=== PATIENT | male | born 1975 | race Caucasian/White ===

== ENCOUNTER 2022-11-20 10:18 | Outpatient (OUT) | payer BC, SELFPAY ==
[2022-11-20 10:42] LABS: Basophils Absolute Auto 0.1 10^3/uL (0.0-0.1); Basophils Percent Auto 1.2 % (0.2-2.0); Eosinophils Absolute Auto 0.1 10^3/uL (0.0-0.7); Eosinophils Percent Auto 0.8 % (0.9-7.0); Hematocrit 43.1 % (42.0-54.0); Hemoglobin 14.7 g/dL (14.0-18.0); Immature Granulocytes Abs Auto 0.04 10^3/uL (0.00-0.03); Immature Granulocytes Pct Auto 0.7 % (0.0-0.5); Lymphocytes Absolute Auto 1.6 10^3/uL (1.2-3.8); Mean Corpuscular HGB Conc 34.1 g/dL (29.9-35.2); Mean Corpuscular Hemoglobin 31.7 pg (25.9-34.0); Mean Corpuscular Volume 93.1 fL (80.0-94.0); Mean Platelet Volume 9.1 fL (9.5-13.5); Monocytes Absolute Auto 0.6 10^3/uL (0.3-0.8); Monocytes Percent Auto 9.9 % (1.7-12.0); Neutrophils Absolute Auto 3.6 10^3/uL (1.4-6.5); Neutrophils Percent Auto 60.4 % (43.0-75.0); Platelet Count 288 10^3/uL (150-450); Red Blood Count 4.63 10^6/uL (4.70-6.10); Red Cell Distribution Width 13.2 % (11.0-15.0)
[2022-11-20 10:48] LABS: Estimated Average Glucose 100 mg/dL; Glycohemoglobin A1C 5.1 % (4.5-6.2)
[2022-11-20 11:00] LABS: Alanine Aminotransferase 44 U/L (16-63); Albumin Globulin Ratio 1.2; Alkaline Phosphatase 96 U/L (46-116); Anion Gap 14.7; Aspartate Amino Transferase 21 U/L (15-37); BUN Creatinine Ratio 12.2; Bilirubin Direct 0.1 mg/dL (0.0-0.2); Bilirubin Total 0.4 mg/dL (0.2-1.0); Calcium 9.4 mg/dL (8.5-10.1); Carbon Dioxide 28.4 mmol/L (21.0-32.0); Chloride 101 mmol/L (98-107); Cholesterol 198 mg/dL (<=200); Estimated GFR (African America >60 (>=60); Estimated GFR (Non-African Ame >60 (>=60); Globulin 3.3 g/dL; Glucose 90 mg/dL (74-106); HDL Cholesterol 67 mg/dL (40-60); Potassium 4.1 mmol/L (3.5-5.1); Sodium 140 mmol/L (136-145); Thyroid Stimulating Hormone 2.639 uIU/mL (0.358-3.740); Total Protein 7.3 g/dL (6.4-8.2); Triglycerides 48 mg/dL (<=150); VLDL CHOLESTEROL 9.6 mg/dL
[2022-11-26 16:08] LABS: Free Testosterone(Direct) 7.7 pg/mL (6.8-21.5); Testosterone 252 ng/dL (264-916)
== END 2022-11-20 10:19 | disposition home or self-care (01) ==
PROVIDERS: PCP Family Medicine; Visit Provider Family Medicine
DX: Z00.00 Encounter for general adult medical examination without abnormal findings (principal)
CPT/HCPCS: 36415; 80048; 80061; 80076; 83036; 84402; 84403; 84443; 85025; G0103

== ENCOUNTER 2023-01-27 14:42 | Outpatient (OUT) | payer BC, SELFPAY ==
[2023-01-29 05:05] LABS: Testosterone 149 ng/dL (264-916)
== END 2023-01-27 14:43 | disposition home or self-care (01) ==
PROVIDERS: PCP Family Medicine; Visit Provider Family Medicine
DX: E29.1 Testicular hypofunction (principal)
CPT/HCPCS: 36415; 84403

== ENCOUNTER 2024-01-14 21:18 | Emergency (ER) | payer BC, SELFPAY ==
[2024-01-14 21:24] VITALS: BP 145/96; PULSE 98; TEMP 37.2; O2SAT 95; BMI 39.3
[2024-01-14] MEDS: AMOXICILLIN/POTASSIUM CLAV 1 TAB TABLET PO (21:46)
--- NOTE | 2024-01-15 02:07 | ED.GENADUL1 ---
HPI HPI - General Adult General Chief complaint: Dental/Oral Stated complaint: Dental Pain Time Seen by Provider: 01/14/24 21:25 Source: patient Mode of arrival: walk-in Limitations: no limitations History of Present Illness HPI narrative: 48-year-old male to the emergency department chief complaint of upper left maxillary dental pain. Pain for the last few days. Unable to get into a dentist. Noticed some swelling in the maxillary region today prompting his ED visit. Denies any fever, sweats, chills. Related Data Home Medications ?Medication ?Instructions ?Recorded ?Confirmed bupropion HCl 150 mg 24 hr tablet, 300 mg PO DAILY 01/14/24 01/14/24 extended release buspirone 15 mg tablet 15 mg PO DAILY 01/14/24 01/14/24 levothyroxine 88 mcg tablet 88 mcg PO DAILY 01/14/24 01/14/24 lisinopril 20 1 tab PO DAILY 01/14/24 01/14/24 mg-hydrochlorothiazide 25 mg tablet Previous Rx's ?Medication ?Instructions ?Recorded amoxicillin 875 mg-potassium 1 tab PO Q12H #14 tabs 01/14/24 clavulanate 125 mg tablet Allergies Allergy/AdvReac Type Severity Reaction Status Date / Time No Known Drug Allergies Allergy Verified 01/14/24 21:23 Opioid HPI Opioid Management Most Recent Opioid Data: No Data to Display Review of Systems ROS Status of ROS 10 or more systems reviewed and unremarkable except as noted in history and below Exam Narrative Exam Narrative: VITALS: I have reviewed the triage vital signs. GENERAL: Well developed, well appearing adult in no acute distress. NEURO: Alert and oriented. Moves all extremities. Face is symmetric and expressive. EYES: PERRL. No scleral icterus or conjunctival injection. No discharge. HENT: Normocephalic, atraumatic. Hearing is grossly intact. Nares grossly patent and without discharge. Mucous membranes moist. Generally poor dentition. Gingival erythema about fractured tooth #12 NECK: No JVD. Patient moves neck without restriction. No crepitus or swelling EXTREMITIES: Symmetric muscle bulk. No joint swelling. No clubbing, cyanosis, or deformity. SKIN: Warm and dry. Normal turgor. No rash or lesions appreciated. PSYCH: Mood, affect, and interaction is appropriate to the setting. Constitutional Vital Signs, click to edit/add: Last Vital Signs Temp 99 F 01/14/24 21:24 Pulse 98 H 01/14/24 21:24 Resp 14 01/14/24 21:24 BP 145/96 H 01/14/24 21:24 Pulse Ox 95 01/14/24 21:24 O2 Del Method Room Air 01/14/24 21:24 Course Vital Signs Vital signs: Vital Signs Temperature 99 F 01/14/24 21:24 Pulse Rate 98 H 01/14/24 21:24 Respiratory Rate 14 01/14/24 21:24 Blood Pressure 145/96 H 01/14/24 21:24 Pulse Oximetry 95 01/14/24 21:24 Oxygen Delivery Method Room Air 01/14/24 21:24 Temperature 99 F 01/14/24 21:24 Pulse Rate 98 H 01/14/24 21:24 Respiratory Rate 14 01/14/24 21:24 Blood Pressure 145/96 H 01/14/24 21:24 Pulse Oximetry 95 01/14/24 21:24 Oxygen Delivery Method Room Air 01/14/24 21:24 Medical Decision Making MDM Narrative Medical decision making narrative: 40-year-old male with dental pain/infection. Vital stable, the patient is afebrile. No evidence of deep space infection. Tylenol and ibuprofen for discomfort. Will start him on Augmentin. He is instructed follow-up with dentistry within the next week. Return precautions were discussed. All questions were answered. The patient was discharged home. Discharge Plan Discharge Stand Alone Forms: Work/School Release, Portal Instructions Chief Complaint: Dental/Oral Clinical Impression: Dental abscess Patient Disposition: Home, Self-Care Time of Disposition Decision: 21:34 Condition: Good Mode of Transportation: Private Vehicle Prescriptions / Home Meds: New amoxicillin-pot clavulanate 875-125 mg tablet 1 tab PO Q12H Qty: 14 0RF No Action bupropion HCl 150 mg tablet extended release 24 hr 300 mg PO DAILY buspirone 15 mg tablet 15 mg PO DAILY levothyroxine 88 mcg tablet 88 mcg PO DAILY lisinopril-hydrochlorothiazide 20-25 mg tablet 1 tab PO DAILY Print Language: Lithuanian Instructions: Dental Abscess (ED) Additional Instructions: Call the office of your primary care doctor to arrange for follow-up within the above-stated timeframe. Your ED visit was focused on your acute issue and does not replace primary care. You should review your labs, imaging, and diagnoses from this ED visit with your primary care physician. There may be non-emergent/ incidental findings that need further evaluation. You should review your vital signs including blood pressure with your PCP. If you were prescribed medications you should discuss possible side-effects and drug interactions with your pharmacist. Call 911 or go to the nearest Emergency Department if you develop any new or worsening symptoms. Referrals: Sina Sterling MD [Primary Care Provider] - 1 week Discharge Date/Time: 01/14/24 21:50
== END 2024-01-14 21:50 | disposition home or self-care (01) ==
PROVIDERS: Emergency Provider Student in an Organized Health Care Education/Training Program; PCP Family Medicine
DX: K04.7 Periapical abscess without sinus (principal)
CPT/HCPCS: 99283

== ENCOUNTER 2025-02-10 21:58 | Emergency (ER) | payer BC, SELFPAY ==
[2025-02-10] VITALS (12 sets, daily range): BP systolic 127–154; BP diastolic 83–92; PULSE 80–99; O2SAT 94–97; BMI 40.7
--- OUTSIDE RECORDS SUMMARY | 2025-02-10 22:05 | XMS_ITS | CCD ---
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 Name Role Phone Jeremie, Chaya Unavailable Unavailable Jeremie, Chaya Unavailable Unavailable LYNETTE CROCKETT~[phone] UNKNOWN Unavailable Unavailable NADERER, DR LYNETTE Bailey Primary Care Unavailable CINDY ., Admitting Unavailable CINDY ., Attending Unavailable JALYN, DR MARVA Sanchez Consulting Unavailable Zieber, Dionte Consulting Unavailable GRECHNY ., BELLA MCGINNIS Consulting Unavailabl e CINDY ., Consulting Unavailable ALFREDO, MOUNA Attending Unavailable ALFREDO, MOUNA Attending Unavailable ALFREDO, MOUNA Attending Unavailable ALFREDO, MOUNA Attending Unavailable ALFREDO, MOUNA Admitting Unavailable ALFREDO, MOUNA Attending Unavailable ALFREDO, MOUNA Referring Unavailable ALFREDO, MOUNA Referring Unavailable ALFREDO, MOUNA Referring Unavailable ALFREDO, MOUNA Referring Unavailable ALFREDO, MOUNA Referring Unavailable NADERER, LYNETTE Attending Unavailable Problems Active Problems Problem Classification Problem Date Documented Da te Episodic/Chronic Crushing injury or internal injury (1 source) Crushing injury of right little finger, initial encounter; Translations: [CRUSHING INJURY RT LTL FINGER INIT] Onset: 09-09-2022 Episodic E Codes: Other specified and classifiable (1 source) Caught, crushed, jammed, or pinched between moving objects, initial encounter; Translations: [CAUGHT CRUSH/PINCH BTWN MOV OBJ INT] Onset: 09-09-2022 Episodic Fracture of upper limb (2 sources) Displaced fracture of distal phalanx of left little finger, initial encounter for open fracture; Translations: [Displaced fracture of distal phalanx of left little finger, initial encounter for open fracture] Onset: 03-03-2023 Episodic Immunizations and screening for infectious disease (1 source) Encounter for immunization; Translations: [ENCOUNTER FOR IMMUNIZATION] Onset: 09-09-2022 Episodic Open wounds of extremities (1 source) Laceration without foreign body of right index finger without damage to nail, initial encounter; Translations: [LAC W/O FB RT IF W/O DMG NAIL INIT] Onset: 09-09-2022 Episodic Other injuries and conditions due to external causes (3 sources) Unspecified injury of right wrist, hand and finger(s), initial encounter; Translations: [UNS INJ RT WRIST HAND FINGERS INIT] Onset: 09-07-2022 Episodic Past or Other Problems Problem Classification Problem Date Documented Da te Episodic/Chronic Fracture of upper limb (3 sources) Displaced fracture of distal phalanx of right little finger, initial encounter for closed fracture; Translations: [Displaced fracture of distal phalanx of unspecified finger, initial encounter for open fracture] Onset: 09-09-2022 Episodic Other acquired deformities (2 sources) Mallet finger of right finger(s); Translations: [Mallet finger of right finger(s)] Onset: 10-20-2022 Episodic Other connective tissue disease (2 sources) Pain in right hand; Translations: [Pain in right hand] Onset: 09-09-2022 Episodic Residual codes; unclassified (2 sources) Pain, unspecified; Translations: [Pain, unspecified] Onset: 09-13-2022 Episodic Results Test Name Value Interpretation Reference Range Facility Follow-Upon 12-02-2022 Follow-Up [id number] Wendy Musa 1975 M Date Provider Department Center 12/02/2022 BRYAN EVANS Family History Family history unknown: Yes Level of Service:74714 NM POSTOP FOLLOW UP VISIT RELATED TO ORIGINAL PX Reason for Visit and Comments: Follow-up [020788] - [facility] Injury Pain [136] - [facility] Injury Normal [facility] Office Visiton 10-20-2022 Follow-up visit [id number] Wendy Musa 1975 M Date Provider Department Center 10/20/2022 BRYAN EVANS Family History Family history unknown: Yes Level of Service:93787 NM POSTOP FOLLOW UP VISIT RELATED TO ORIGINAL PX Reason for Visit and Comments: Pain [136] Normal [facility] Office Visiton 09-24-2022 Follow-up visit [id number] Wendy Musa 1975 M Date Provider Department Center 09/24/2022 Cornelio-BRYAN FUENTES [facility]O [facility]THO Family History Family history unknown: Yes Level of Service:70888 NM POSTOP FOLLOW UP VISIT RELATED TO ORIGINAL PX Reason for Visit and Comments: Post-op [483] [facility] HPon 09-13-2022 HP H&P reviewed. The patient was examined and there are no changes to the H&P. [facility] OPNOTEon 09-13-2022 OPNOTE CLOSED REDUCTION , PERCUTANEOUS PINNING, FRACTURE, SMALL FINGER (R) Operative Note Date: 09/13/2022 Location: [facility] OR Name: Yuval Musa, : 1975, Diagnosis Pre-op Diagnosis * Displaced fracture of distal phalanx of unspecified finger, initial encounter for open fracture [S62.419B] Post-op Diagnosis * Displaced fracture of distal phalanx of unspecified finger, initial encounter for open fracture [S62.639B] Procedures * CLOSED REDUCTION , PERCUTANEOUS PINNING, FRACTURE, SMALL FINGER Surgeons * Mouna Chanceapha - Primary Procedure Summary Anesthesia: Regional ASA: II Estimated Blood Loss: 1 mL Implants Type Name Action Serial No. Pin K-WIRE,#1,[id number] - [id number] Implanted Pin K-WIRE,#1,[id number] - [id number] Used, Not Implanted Staff: Roofer: Danni Evans RN Scrub Person: Kellee Rosenberg CST Indications: Yuval Musa is an 46 y.o. male who is having surgery for Displaced fracture of distal phalanx of unspecified finger, initial encounter for open fracture [S62.048B]. Procedure Details: The patient was seen in the preoperative area. The risks, benefits, complications, treatment options, non-operative alternatives, expected recovery and outcomes were discussed with the patient. The possibilities of reaction to medication, pulmonary aspiration, injury to surrounding structures, bleeding, recurrent infection, the need for additional procedures, failure to diagnose a condition, and creating a complication requiring transfusion or operation were discussed with the patient. The patient concurred with the proposed plan, giving informed consent. The site of surgery was properly noted/marked if necessary per policy. The patient has been actively warmed in preoperative area. Preoperative antibiotics have been ordered and given within 1 hours of incision. Venous thrombosis prophylaxis are not indicated. Findings: Noted was that the right small finger was still swollen. The wound to the volar surface was healing well with no signs of infection. Radiographs have been taken which did demonstrate an reaffirm complete volar subluxation of the DIP joint and now the dorsal fragment appeared to be retracted proximally as well. In the preoperative holding area under conscious sedation a digital block to the right small finger was established using 7 cc of a mixture of 0.5% Marcaine/1% Xylocaine. Patient was then transferred to the operating room whereby the right upper extremity was prepped and draped for the proposed procedure. Radiographs were repeated which did demonstrate proximal and dorsal translation of the dorsal fragment of the P3. With flexion of the DIP joint this fragment was reduced and was elected to proceed with a blocking pin to prevent dorsal proximal translation. 8.045 inch Laura wire was then established in an oblique fashion serving as a blocking pin. The distal phalanx was then extended and under x-ray guidance reduction of the fragment and concentric reduction of the joint report demonstrated. The joint was then stabilized with 3.045 Laura wire advanced in an anterograde fashion. Final radiographs demonstrated excellent reduction of the fracture fragment and reduction of the joint. Pins were bent and cut at the level of the skin. Sterile dressings were applied. Complications: None; patient tolerated the procedure well. Disposition: PACU - hemodynamically stable. Condition: stable Mouna Alfredo Normal [facility] POCT GLUCOSE METER UNSOLICIT ED RESULTSon 09-13-2022 Glucose [Mass/Vol] 97 mg/dL Normal 70-105 [facility] Comment on above: Result Comment: binw low Performed By: #### L [id number] #### [facility] [address] [place] [address] HPon 09-09-2022 HP --- Attestation signed by Mouna Fuentes MD at 09/13/2022 12:20 PM I personally saw and examined the patient on the same date of service as resident/fellow . I discussed the findings and therapeutic plan with the resident/fellow . I agree with the documentation, except for any edits/updates below. Teaching Physician's Revisions: Orthopedic Surgery Subjective Chief complaint: Chief Complaint Patient presents with Right Hand - Pain 09/09/22 Yuval Musa is a 46 y.o. year old male presenting for evaluation of right hand small finger crush injury with subsequent open fracture dislocation at work two days ago. He went to [facility] where they treated his finger. He was given a tetanus shot and has been on antibiotics. He denies fever, chills, nausea, vomiting, headache, chest pain. Patient History History reviewed. No pertinent surgical history. Past Medical History: Diagnosis Date Diverticulitis Hypertension Hypothyroid Objective General: Body mass index is 39.33 kg/m???. No acute distress, comfortable Respiratory: Unlabored breathing with normal rate, no cough Psych: Appropriate mood behavior Right hand: Inspection- Laceration repaired with sutures along the volar ulnar aspect of his small finger spanning the PIP and DIP. Tendons- FDP and FDS in intact of the small finger. Sensation- SILT along the radial and ulnar aspect of the volar small finger and the volar tip of the finger. Vascular- Appropriate cap refill of the small finger. Imaging: Radiographs of right hand demonstrate small finger distal phalanx base fracture with intra-articular involvement. The small finger distal phalanx is subluxed anteriorly. Assessment/Plan Yuval Musa is a 46 y.o. year old male who suffered a right hand small finger open distal phalanx base fracture with intra-articular involvement initially treated at [facility] and sent to our clinic for further care. Given his injury, the patient will benefit from surgical repair with closed reduction and percutaneous pinning of his fracture. -Submit C9 for diagnosis of right hand small finger open distal phalanx base fracture with intra-articular involvement -Submit C9 for surgical repair with closed reduction and percutaneous pinning of his right hand small finger distal phalanx fracture. -Patient was explained risks and benefits of surgery and surgical consent obtained today. -Patient should continue to practice daily dressing changes and wear the splint that he has. -Continue with antibiotics. - Patient will be off work for 2 weeks. Matthew Gill MD PGY-3 Orthopedic Surgery [facility] By using the attestations below, the signing clinician agrees that I have read and verify that the documentation has been personally reviewed by me and ensure that the documentation accurately reflects the encounter. GC: I personally saw this patient on the day of the encounter, performed the winslow portion(s) of the service and participated in the management and confirm the resident's documentation. Please note there may be an additional personal documentation from me. [facility] Office Visiton 09-09-2022 Follow-up visit [id number] Wendy Musa 1975 M Date Provider Department Center 09/09/2022 [facility] Family history unknown: Yes Level of Service:44900 NM OFFICE/OUTPATIENT NEW LOW [facility] 30-44 MINUTES Reason for Visit and Comments: Pain [136] [facility] Coding Summary.on 01-31-2018 Coding Summary. CODING DATE: 018 FINAL [facility] STATUS: [facility] PAYOR: Commercial Insurance APC DESCRIPTION 5025 Level 5 Type A ED Visits ADMIT DX: REASON FOR VISIT DX: R45.851 Suicidal ideations F32.9 Major depressive disorder, single episode, unspecified FINAL DX: PRINCIPAL: F32.9 Major depressive disorder, single episode, unspecified SECONDARY: R45.851 Suicidal ideations I10 Essential (primary) hypertension Z79.899 Other intermediate frame tender (current) drug therapy F17.210 Nicotine dependence, cigarettes, uncomplicated PYMT PROC APC STAT DESCRIPTION DOCTOR NAME DATE NOTE: The code number assigned matches the documented diagnosis and / or procedure in the patient's chart. However, the narrative phrase printed from the coding software may appear abbreviated, or result in slightly different terminology. Revised Coded By: Elizabeth Marcelo Revised Date Saved: 01/31/2018 09:52 am Normal [facility] Acetamnphn Lvlon 01-30-2018 Acetaminophen mass conc <10 Low 15-30 F [facility] Comment on above: Performed By: #### 2 [id number], [id number] ####[facility] [address] [place] [address] Auto Diffon 01-30-2018 Basophils Auto #/vol (Bld) 0.7 % Normal 0.0-2.0 [facility] Comment on above: Order Comment: Order Added by Discern Expert. Performed By: #### 2 551580, 7969693, 1755400, [id number] ####[facility] [address] [place] [address] Basophils/Leukocytes Auto Pure number fraction (Bld) 0.1 E9/L Normal 0.0-0.2 [facility] Comment on above: Order Comment: Order Added by Discern Expert. Performed By: #### 2 793659, 5782275, 2518019, [id number] ####[facility] [address] [place] [address] Eosinophils/100 WBC Auto (Bld) 0.6 % Normal 0.0-8.0 [facility] Comment on above: Order Comment: Order Added by Discern Expert. Performed By: #### 2 142336, 9800010, 8225046, 53827041 ####[facility] [address] [place] [address] Eosinophils/Leukocytes Auto Pure number fraction (Bld) 0.1 E9/L Normal 0.0-0.5 [facility] Comment on above: Order Comment: Order Added by Discern Expert. Performed By: #### 2 344514, 1575470, 6838064, 09856158 ####[facility] [address] [place] [address] Lymphocytes/100 WBC Auto (Bld) 30.2 % Normal 14.0-50.0 [facility] Comment on above: Order Comment: Order Added by Tamia Expert. Performed By: #### 2 230429, 1945069, 0705903, 98947831 ####[address] [address] Lymphocytes/Leukocytes Auto Pure number fraction (Bld) 3.0 E9/L Normal 1.0-4.0 [facility] Comment on above: Order Comment: Order Added by Discern Expert. Performed By: #### 2 535683, 5793381, 3295320, 50189966 ####[address] [address] Monocytes/100 WBC Auto (Bld) 5.7 % Normal 4.0-14.0 [facility] Comment on above: Order Comment: Order Added by Tamia Expert. Performed By: #### 2 371987, 1724948, 6945185, 05274543 ####[address] [address] Monocytes/Leukocytes Auto Pure number fraction (Bld) 0.6 E9/L Normal 0.2-1.0 [facility] Comment on above: Order Comment: Order Added by Tamia Expert. Performed By: #### 2 108327, 6985681, 4953455, 82890747 ####[address] [address] Neutrophils/100 WBC Auto (Bld) 62.8 % Normal 36.0-75.0 [facility] Comment on above: Order Comment: Order Added by Tamia Expert. Performed By: #### 2 432583, 6789728, 2448190, 55260204 ####[address] [address] Neutrophils/Leukocytes Auto Pure number fraction (Bld) 6.3 E9/L Normal 2.0-7.5 [facility] Comment on above: Order Comment: Order Added by Tamia Expert. Performed By: #### 2 589791, 5274373, 9432378, 83590877 ####[place] 9209357 CBC w/ Auto Diffon 8 Erythrocyte distribution width Auto Ratio (RBC) 13.6 % Normal 10.9-14.2 [facility] Comment on above: Performed By: #### 2 944544, 1154398, 3409259, 32248379 ####[place] 9405357 Hematocrit Auto Volume Fraction (Bld) 48.7 % Normal 37.7-49.0 [facility] Comment on above: Performed By: #### 2 785088, 6670007, 9849236, 03373549 ####[place] 9405357 Hemoglobin mass conc (Bld) 16.7 g/dL Normal 13.5-17.5 [facility] Comment on above: Performed By: #### 2 669077, 1344835, 4835114, 89295433 ####[place] 9405357 MCH Auto Entitic mass (RBC) 30.6 pg Normal 27.0-34.0 [facility] Comment on above: Performed By: #### 2 085668, 1213863, 4404740, 68449162 ####[address] [address] MCHC Auto mass conc (RBC) 34.3 g/dL Normal 31.4-39.3 [facility] Comment on above: Performed By: #### 2 943035, 9139670, 6447584, 36852970 ####[address] [address] MCV Auto Entitic volume (RBC) 89.3 fL Normal 80.0-100.0 [facility] Comment on above: Performed By: #### 2 085564, 6195261, 8212885, 44643465 ####[address] [address] Platelet mean volume Auto Entitic volume (Bld) 7.6 fL Normal 6.4-10.8 [facility] Comment on above: Performed By: #### 2 926348, 3153831, 1482653, 78739400 ####[address] [address] Platelets Auto #/vol (Bld) 361.0 E9/L Normal 150.0-500.0 [facility] Comment on above: Performed By: #### 2 458589, 8234003, 5579438, 44098042 ####[facility] [address] [place] [address] RBC Auto #/vol (Bld) 5.4 E12/L Normal 4.3-5.9 [facility] Comment on above: Performed By: #### 2 545410, 1165852, 3370676, 01640272 ####[address] [address] WBC corrected for nucl RBC Auto #/vol (Bld) 10.1 E9/L Normal 4.0-11.0 [facility] Comment on above: Performed By: #### 2 414969, 3609620, 4669902, 83358002 ####[address] [address] CMPon 01-30-2018 Albumin mass conc 1.3 g/dL Normal 1.1-2.2 [facility] Comment on above: Performed By: #### 2 594715, 7802419, 4817506, 37926142 ####[place] [address] [place] [address] Albumin mass conc 4.5 g/dL Normal 3.3-5.0 [facility] Comment on above: Performed By: #### 2 661926, 6442672, 5382767, 10287542 ####[facility] [address] [place] [address] ALP enzyme act/vol 91 Int._Unit/L Normal 21-98 [facility] Comment on above: Performed By: #### 2 445004, 0433382, 8548247, 19500815 ####[facility] [address] [place] [address] ALT No additional P-5'-P enzyme act/vol 33 Int._Unit/L Normal 6-46 [facility] Comment on above: Performed By: #### 2 800220, 9729877, 6508560, 79595979 ####[facility] [address] [place] [address] AST enzyme act/vol 26 Int._Unit/L Normal 5-43 [facility] Comment on above: Performed By: #### 2 550055, 4941293, 6214867, 46973372 ####[facility] [address] [place] [address] Bilirubin mass conc 0.5 mg/dL Normal 0.0-1.1 [facility] Comment on above: Performed By: #### 2 259333, 6101841, 6844502, 48029360 ####[facility] [address] [place] [address] Creatinine mass conc 0.9 mg/dL Normal 0.5-1.3 [facility] Comment on above: Performed By: #### 2 947082, 3263769, 2319358, 11636649 ####[facility] [address] [facility] [place] [address] Globulin Calculated mass conc (S) 3.4 g/dL Normal 1.4-4.0 [facility] Comment on above: Performed By: #### 2 609015, 7064801, 6118251, 55516964 ####[facility] [address] [place] [address] Protein mass conc 7.9 g/dL High 6.0-7.8 [facility] Comment on above: Performed By: #### 2 515637, 1257110, 8289917, 74866204 ####[facility] [address] [place] [address] Urea nitrogen mass conc 11 mg/dL Normal 5-21 F [facility] Comment on above: Performed By: #### 2 812416, 8125986, 6211745, 59380665 ####[facility] [address] [place] [address] Urea nitrogen/Creatinine mass ratio 12 No Units Normal 10-20 [facility] Comment on above: Performed By: #### 2 469227, 4509597, 1119073, 75940125 ####[facility] [address] [place] [address] Anion gap 3 molar conc 17 mmol/L High 6-16 Fi [facility] Comment on above: Performed By: #### 2 324978, 5902410, 0884897, 11160502 ####[facility] [address] [place] [address] Calcium mass conc 9.3 mg/dL Normal 8.9-11.1 [facility] Comment on above: Performed By: #### 2 703356, 4943385, 2293762, 19430746 ####[facility] [address] [facility] [place] [address] Chloride molar conc 99 mmol/L Low 101-111 [facility] Comment on above: Performed By: #### 2 950093, 9996737, 6712080, 95586161 ####[facility] [address] [place] [address] CO2 molar conc 22 mmol/L Normal 21-31 [facility] Comment on above: Performed By: #### 2 641509, 5028385, 0201896, 90725090 ####[facility] [address] [place] [address] Glucose mass conc 128 mg/dL Normal 55-199 [facility] Comment on above: Result Comment: If t his glucose result represents a fasting glucose, interpretation should refer to the following reference range: 55-99 mg/dL Performed By: #### 2 712159, 8370389, 2488899, 48970173 ####[facility] [address] [place] [address] Potassium molar conc 3.6 mmol/L Normal 3.5-5.3 [facility] Comment on above: Performed By: #### 2 836711, 4993012, 6566110, 51151222 ####[facility] [address] [place] [address] Sodium molar conc 134 mmol/L Low 135-145 [facility] Comment on above: Performed By: #### 2 931613, 0480805, 4458565, 28178724 ####[facility] [address] [place] [address] ED Clinical Summaryon 2017 ED Clinical Summary (Inserted Image. Shantell ble to display) [address] [address] ED Clinical SummaryPerson Information Name: YUVAL MUSA/Davie Age: 42 Years : 1975 12:00 AM Sex: Male Language:Somali PCP: LYNETTE CROCKETT MD Marital Status:Unknown Visit Id: Visit Reason:Suicidal ideation; Screening - general; mhp Speciality: Acuity: 2 Enc Type: Emergency Med Service: Emergency Arrival:01/30/2018 12:29 AM Discharge: 01/30/2018 9:30 AM LOS: 000 09:01 Checkin:01/30/2018 12:29 AM Checkout: 01/30/2018 9:30 AM Dis[facility]: [facility] EVENTS:Event Name Event Status Request Date/Time Start Date/Time Complete Date/Time Arrive Complete 01/30/2018 12:29 AM 01/30/2018 12:29 AM 01/30/2018 12:29 AM Document Home Meds Request 01/30/2018 12:29 AM Triage Complete 01/30/2018 12:29 AM 01/30/2018 12:38 AM 01/30/2018 12:38 AM Bed Assign Complete 01/30/2018 12:36 AM 01/30/2018 12:36 AM 01/30/2018 12:[address] Exam Complete 01/30/2018 12:36 AM 01/30/2018 12:49 AM 01/30/2018 12:49 AM RN Exam Complete 01/30/2018 12:36 AM 01/30/2018 1:07 AM 01/30/2018 1:07 AM Pending Labs Complete 01/30/2018 12:37 AM 01/30/2018 1:22 AM Lab Complete 01/30/2018 12:37 AM 01/30/2018 1:22 AM Urine Collect Complete 01/30/2018 12:37 AM 01/30/2018 1:12 AM Patient Care Request 01/30/2018 12:37 AM Registration Complete 01/30/2018 12:38 AM 01/30/2018 12:38 AM 01/30/2018 12:38 AM Reg Complete Request 01/30/2018 12:38 AM Registration Request 01/30/2018 12:49 AM Pending Labs Complete 01/30/2018 12:54 AM 01/30/2018 12:54 AM 01/30/2018 1:11 AM Lab Complete 01/30/2018 12:54 AM 01/30/2018 12:54 AM 01/30/2018 1:11 AM Pending Labs Request 01/30/2018 12:55 AM Lab Request 01/30/2018 12:55 AM Urine Collect Request 01/30/2018 12:55 AM Pending Labs Complete 01/30/2018 12:57 AM 01/30/2018 12:57 AM 01/30/2018 12:57 AM Lab Complete 01/30/2018 12:57 AM 01/30/2018 12:57 AM 01/30/2018 12:57 AM Consult Request 01/30/2018 12:59 AM Pending Labs Complete 01/30/2018 1:22 AM 01/30/2018 1:41 AM Lab Complete 01/30/2018 1:22 AM 01/30/2018 1:41 AM Meds Admin Complete 01/30/2018 2:48 AM 01/30/2018 4:09 AM Pending Labs Complete 01/30/2018 3:08 AM 01/30/2018 3:08 AM 01/30/2018 3:08 AM Discharge Complete 01/30/2018 9:31 AM 01/30/2018 9:31 AM 01/30/2018 9:31 AM Transfer Complete 01/30/2018 9:31 AM 01/30/2018 9:31 AM 01/30/2018 9:31 AM ADDRESS:[address] [place] [address] [phone] [facility] DOC NOTES: MEDICAL INFORMATION: Prescriptions Given:PATIENT EDUCATION INFORMATION: Instructions: Follow up:DIAGNOSIS:1:Suicidal ideations; 2:Depressed mood Normal [facility] ED Note-Nursingon 01-30-2018 ED Note-Nursing report recieved from Chasity Mehta RN, pt resting at this time with eyes closed within view of nurses station, respirations even and unlabored no signs of distress [id number] continues to rest in room within view of nurses station , respirations even and unlabored, no signs of [id number]- pt continues to rest in room within view of nurses station, 0554- condition unchanged, resting with eyes closed, no s/sx of [id number] resting in bed respirations even and unlabored, no signs of [id number]- pt continues to rest with eyes closed, respirations even and unlabored, pt remains in view of nurses station,[id number]- pt continues to rest with eyes closed, no signs of distressbreakfast tray ordered for [id number]- pt continues to rest left undisturbed, no signs of distress Normal [facility] ED Note-Nursing Pt is resting quietl y in bed. Denies suicidal ideations but has been sending text messages to family members stating otherwise. Messages that were sent state that he will be taking his last breath tonight and hes sorry for not being a better son and brother . Pt is calm and cooperative. [employer] did escort pt in to facility but he is not in custody. Since pt is cooperative they([employer]) have since left. RN will continue to monitor.In room to speak with pt and he is aware that he will be transferred to another facility. Pt is very upset. Is verbalizing that he hates us and we are ruining his life. Pt has now changed out of personal clothing and is in a gown. Has not raised his voice or been aggressive but continually states he cannot be here and that he has to leave.Pt has asked for girlfriend to come back but when she is in room he is being verbally aggressive and cursing. Pt making comments about suing the hospital for holding him against his will. I attempted to inform pt that unfortunately because of comments that were made we are keeping as to not allow harm to self. Pt is up in room standing in corner..P counselor in room to let pt know where he will be going and he is stating he is more suicidal now since we are making him stay and that again we are ruining his life. Pt is very upset.Medications were ordered for pt to help relax and calm down. Pt agreed to meds prior to RN getting them. When in room to administer pt states that if you give me those meds I am going to [place] you . Verbalized to pt that he had agreed to allow us to give. Pt has changed his mind. No medications administered at this time per pt declines. Gave him home contact case and solution.Pt is resting quietly in bed with eyes closed, no signs of distress noted. RN can visualize pt. ETA of depart time is 830am. Normal [facility] ED Note-Physicianon 01-31-20 ED Note-Physician Basic Information Ti me Seen: Jeremie DOChaya 01/30/2018 00:49Chief Complaint Pt arrives in [employer] custody after 'arguement with gf' sts he 'said something about harming himself this evening.' Pt presently denies homicidal/SI tendencies. Denies depression, anxiety. Drank 5 beers, denies drug use.History of Present Illness 42M presents to the ER with general issues and concern for depression and suicidal ideations/threats. Discussion with the girlfriend, the patient has had increased depression over the past few months. He is having multiple stressors at home. He has issues with his ex-. He also has concerns with his 3 children that he has with ex-. He is starting a new job tomorrow. He has made multiple suicidal threats in the past. He did tell his current girlfriend couple months ago that he was at home with a shotgun in his mouth ready to go. She states they do have a shotgun at home. Tonight he had issues with his son at the football game. His girlfriend and him went to the concert afterwards. After the concert, patient was crying and stating that he hated everything. At this time he proceeded to contact his family members to tell them he loved them and to say goodbye. He also told that tonight was the night of his last breath. Girlfriend is very concerned as his depression and suicidal threats have worsened over the past couple of months. Tonight, they got into an argument and he stated he was going to jump off the bridge. She does not feel safe with him going home. Patient denies suicidal thoughts. He states he just had an argument with his girlfriend and his ex . He states he was just making the statement to get her mad and get their attention. In the patient's pocket was a note written to his eldest son, essentially leaving everything to him and asking him to take care of his brothers.Review of Systems Unless otherwise stated in this report the patient's positive and negative responses for review of systems for constitutional, eyes, ENT, cardiovascular, respiratory, gastrointestinal, neurological, genitourinary, musculoskeletal, and integument systems and related systems to the presenting problem are either as stated in the HPI or were not pertinent or were negative for the symptoms and/or complaints related to the presenting medical problem. Physical Exam Vitals & Measurements HR: 120(Peripheral) RR: 20 BP: 135/90 SpO2: 96% HT: 180 cm WT: 138.5 kg BMI: 42.75 General: Alert, no acute distress Skin: warm, intact, no pallor noted Head: Normocephalic, atraumatic Eye: Normal conjunctiva Cardiac: Normal peripheral perfusion. Respiratory: No acute distress. Gastrointestinal: Soft, nontender, no distention, bowel sounds present. Musculoskeletal: No deformity, full ROM. No edema Neurological: alert and oriented, normal sensory and motor observed. Psychiatric: CooperativeMedical Decision Making I was able to read the text messages the patient sent to his sister as well as his aunt. He was very clear in his messages that his intent tonight was to commit suicide. At this time we will medically clear the patient to have him evaluated by a mental health professional. Patient will be pink slipped. medically cleared for psych eval. evaluated by [facility] patient becoming more aggressive with violent outbursts towards staff - 1mg ativan and 2mg Haldol ordered. Patient has been accepted at [address], accepting physician Dr Perez. Transport to be set up around 8-830am. We will continue to monitor the patient until that time. His home anti-hypertensive medication of lisinopril was given to him Pt refused ativan and haldol at this time. He is more calm and agreeable to the plan.Assessment/Plan 1. Suicidal ideations 2. Depressed mood Orders: haloperidol, 2 mg = 0.4 mL, Injection, IntraMuscular, Once, Stop date 01/30/18 3:00:00 EDT, Routine, Start date 01/30/18 3:00:00 EDT lorazepam, 1 mg = 0.5 mL, Injection, IV Push, Once, Stop date 01/30/18 3:00:00 EDT, Routine, Start date 01/30/18 3:00:00 EDT Acetaminophen Level Automated Diff CBC w/ Auto Diff Communication Order Comprehensive Metabolic Panel Consult to Mental Health Drug Screen Urine eGFR Ethanol Level Salicylate Level UA With Cult ReflexDisposition Plan Patient Discharge Condition stable Discharge Disposition TRANSFER FOR INPATIENT PSYCH TO [address], ACCEPTING PHYSICIAN DR PEREZ. Discharge Prescription List Prescriptions No active prescription medications Follow-up No qualifying data availableProblem List/Past Medical History Ongoing Smoker Historical No qualifying dataMedications Inpatient Ativan 2 mg/mL Injection, 1 mg= 0.5 mL, IV Push, Once haloperidol 5 mg/mL Inj, 2 mg= 0.4 mL, IntraMuscular, Once Home No active home medicationsAllergies No Known AllergiesLab Results WBC: 10.1 E9/L (01/30/18 00:50:00 EDT) RBC: 5.4 E12/L (01/30/18 00:50:00 EDT) Hgb: 16.7 gm/dL (01/30/18 00:50:00 EDT) Hct: 48.7 % (01/30/18 00:50:00 EDT) MCV: 89.3 fL (01/30/18 00:50:00 EDT) MCH: 30.6 pg (01/30/18 00:50:00 EDT) MCHC: 34.3 gm/dL (01/30/18 00:50:00 EDT) RDW: 13.6 % (01/30/18 00:50:00 EDT) Platelet: 361 E9/L (01/30/18 00:50:00 EDT) MPV: 7.6 fL (01/30/18 00:50:00 EDT) Neutro Auto: 62.8 % (01/30/18 00:50:00 EDT) Lymph Auto: 30.2 % (01/30/18 00:50:00 EDT) [place] Auto: 5.7 % (01/30/18 00:50:00 EDT) Eos Auto: 0.6 % (01/30/18 00:50:00 EDT) Basophil Auto: 0.7 % (01/30/18 00:50:00 EDT) Neutro Absolute: 6.3 E9/L (01/30/18 00:50:00 EDT) Lymph Absolute: 3 E9/L (01/30/18 00:50:00 EDT) [place] Absolute: 0.6 E9/L (01/30/18 00:50:00 EDT) Eos Absolute: 0.1 E9/L (01/30/18 00:50:00 EDT) Basophil Absolute: 0.1 E9/L (01/30/18 00:50:00 EDT) Glucose Lvl: 128 mg/dL (01/30/18 00:50:00 EDT) BUN: 11 mg/dL (01/30/18 00:50:00 EDT) Creatinine: 0.9 mg/dL (01/30/18 00:50:00 EDT) eGFR: >60 (01/30/18 00:50:00 EDT) eGFR AA: >60 (01/30/18 00:50:00 EDT) BUN/Creat Ratio: 12 (01/30/18 00:50:00 EDT) Sodium Lvl: 134 mmol/L Low (01/30/18 00:50:00 EDT) Potassium Lvl: 3.6 mmol/L (01/30/18 00:50:00 EDT) Chloride: 99 mmol/L Low (01/30/18 00:50:00 EDT) CO2: 22 mmol/L (01/30/18 00:50:00 EDT) AGAP: 17 mEq/L High (01/30/18 00:50:00 EDT) Calcium Lvl: 9.3 mg/dL (01/30/18 00:50:00 EDT) Alk Phos: 91 Int._Unit/L (01/30/18 00:50:00 EDT) ALT: 33 Int._Unit/L (01/30/18 00:50:00 EDT) AST: 26 Int._Unit/L (01/30/18 00:50:00 EDT) Total Protein: 7.9 gm/dL High (01/30/18 00:50:00 EDT) Albumin Lvl: 4.5 gm/dL (01/30/18 00:50:00 EDT) Globulin: 3.4 gm/dL (01/30/18 00:50:00 EDT) A/G Ratio: 1.3 (01/30/18 00:50:00 EDT) Bili Total: 0.5 mg/dL (01/30/18 00:50:00 EDT) Acetaminoph Lvl: <10 Low (01/30/18 00:50:00 EDT) Salicylate Lvl: <4 Low (01/30/18 00:50:00 EDT) U Amph Scr: Negative (01/30/18 00:47:00 EDT) U Nel Scr: Negative (01/30/18 00:47:00 EDT) U Benzodia Scr: Negative (01/30/18 00:47:00 EDT) U Cannab Scr: Negative (01/30/18 00:47:00 EDT) U Cocaine Scr: Negative (01/30/18 00:47:00 EDT) U Opiate Scr: NEG1 (01/30/18 00:47:00 EDT) U PCP Scr: Negative (01/30/18 00:47:00 EDT) Ethanol Lvl: 154 mg/dL Critical (01/30/18 00:50:00 EDT)Diagnostic Results No qualifying data available. Normal [facility] Comment on above: Result Comment: Elec tronically Signed By: Chaya Chao DO\.br\Date and Time Signed: 01/30/18 03:37 EDT ED Patient Education Noteon 01-30-2018 ED Patient Education Note Normal [facility] ED Patient Summaryon 018 ED Patient Summary (Inserted Image. Shantell ble to display) [address] [address] Patient Discharge Instructions Person Information Name: YUVAL MUSA Age: 42 Years Date: 01/30/2018 12:29 AMDischarge Diagnosis: 1:Suicidal ideations; 2:Depressed mood Primary Care Physician: LYNETTE CROCKETT MD Provider InformationPrimary Provider: Wilver Chao DOdvbev Assistant Front Office Manager:None The exam and treatment you received in the Emergency Department were for an urgent problem and are not intended as complete care. It is important that you follow up with a doctor, nurse practitioner, or physician?s clinical data assistant for ongoing care. If your symptoms become worse or you do not improve as expected and you are unable to reach your usual health care provider, you should return to the Emergency Department. We are available 24 hours a day. YUVAL MUSA has been given the following list of patient education materials, prescriptions and follow-up instructions: Follow-up Instructions: In the event that this physician does not participate in your insurance network, please consult with your insurance company to find a nearby participating provider. Patient Education Materials: A MESSAGE TO ALL PATIENTS REGARDING OPIOIDS PRESCRIPTION OPIOIDS: WHAT YOU NEED TO KNOW Prescription opioids can be used to help relieve lbkthpcp-nf-gdrgwz pain and are often prescribed following a surgery or injury, or for certain health conditions. These medications can be an important part of the treatment but also come with serious risks. It is important to work with your healthcare provider to make sure you are getting the safest, most effective care. WHAT ARE THE RISKS AND SIDE EFFECTS OF OPIOID USE?Prescription opioids carry serious risks of addiction and overdose, especially with prolonged use. An opioid overdose, often marked by slowed breathing, can cause sudden . The use of prescription opioids can have a number of side effects as well, even when taken as directed:? Tolerance?meaning you might need to take more of the medication for the same pain relief? Physical dependence?meaning you have symptoms of withdrawal when a medication is stopped? Increased sensitivity to pain ? Constipation? Nausea, vomiting, and dry mouth? Sleepiness and dizziness? Confusion? Depression? Low levels of testosterone that can result in lower sex drive, energy, and strength? Itching and sweating RISKS ARE GREATER WITH:? History of drug misuse, substance use disorder, or overdose? Mental health conditions (such as depression or anxiety)? Sleep apnea? Older age (65 years and older)? Avoid alcohol while taking prescription opioids. Also, unless specifically advised by your health care provider, medications to avoid include:? Benzodiazepines (such as Xanax or Valium)? Muscle relaxants (such as Soma or Flexeril)? Hypnotics (such as Ambien or Lunesta)? Other prescription opioids KNOW YOUR OPTIONSTalk to your health care provider about ways to manage your pain that don?t involve prescription opioids. Some of these options may actually work better and have fewer risks and side effects. Options may include:? Pain relievers such as acetaminophen, ibuprofen, and naproxen? Some medication that are also used for depression or seizures? Physical therapy and exercise? Cognitive behavioral therapy, a psychological, goal-directed approach, in which patients learn how to modify physical, behavioral, and emotional triggers of pain and stress. IF YOU ARE PRESCRIBED OPIOIDS FOR PAIN:? Never take opioids in greater amounts or more often than prescribed.? Follow up with your primary health care provider.o Work together to create a plan on how to manage your pain.o Talk about ways to help manage your pain that don?t involve prescription opioids.o Talk about any and all concerns and side effects.? Help prevent misuse and abuseo Never sell or share prescription opioids.o Never use another person?s prescription opioids.? Store prescription opioids in a secure place and out of reach of others (this may include visitors, children, friends, and family).? Safely dispose of unused prescription opioids: Find your community drug take-back program or your pharmacy mail-back program, or flush them down the toilet, following guidance from the Food and Drug Administration (www.fda.gov/Drugs/Reso urcesForYou).? Visit www.cdc.gov/drugoverdos e to learn about the risks of opioids abuse and overdose.? If you believe you may be struggling with addiction, tell your health healthcare market consultant and ask for guidance or call [facility] National Helpline at 5-215-544-IGGQ. v Source: US Department of Health and Human Services/Center for Disease Control & Prevention [facility] Medications Given:Medication Dose Route No medications found. Medication Information:Comment: Pharmacy Information: Thank you for choosing [facility] P atient Education Materials: GUANACO Mari BRIAN S , have received the following patient education materials/instructions and have verbalized understanding: Patient Education Materials: Follow-up Instructions: Prescriptions: Patient Signature Clinician/Nurse Signature _ Date 01/30/18 09:31:29 Normal [facility] Ethanolon 01-30-2018 Ethanol mass conc 154 mg/dL Abnormal <=7 [facility] Comment on above: Result Comment: Crit ical Result S_ETOH:154.0 Called to ROBERTO CANALES AT by SONDRA MEEK And Read Back For Confirmation at: 01/30/2018 01:22:23\Critical Result verified by repeat analysis Performed By: #### 2 [id number] ####[facility] [address] [place] [address] Progress Note-Nurseon 2017 Protein mass conc Patient remains cooperative. Denies any needs or complaints at this time. Lien Searcher updated girlfriend Ignacia Bahena with current plan of care after patient consent. Normal [facility] Protein mass conc Patient consumed 75% of meal. Up ambulated to bathroom with slow steady gait. Patient denies any further needs. Cooperative at this time. Normal [facility] Protein mass conc Care of patient take n over per conventional underwriter. Meal tray given. Patient denies complaints or needs. Cooperative at this time. Normal [facility] Salicylateon 01-30-2018 Salicylates mass conc mg/dL Low 6-29 [facility] Comment on above: Performed By: #### 2 [id number] ####[facility] [address] [facility] [place] [address] U Drug Screenon 01-30-2018 Amphetamines Screen method >1000 ng/mL Ql (U) Negative Normal Negative [facility] Comment on above: Result Comment: Nega tive Cutoff: <1000 ng/mL Performed By: #### 2 [id number] ####[facility] [address] [place] [address] Barbiturates Screen Ql (U) Negative Normal Negative [facility] Comment on above: Result Comment: Nega tive Cutoff: <200 ng/mL Performed By: #### 2 [id number] ####[facility] [address] [place] [address] Benzodiazepines Screen Ql (U) Negative Normal Negative [facility] Comment on above: Result Comment: Nega tive Cutoff: <200 ng/mL Performed By: #### 2 [id number] ####[facility] [address] [place] [address] Cocaine Ql (U) Negative Normal Negative [facility] Comment on above: Result Comment: Nega tive Cutoff: <300 ng/mL Performed By: #### 2 [id number] ####[facility] [address] [place] [address] Opiates Screen Ql (U) Negative Normal Negative [facility] Comment on above: Result Comment: Nega tive Cutoff: <300 ng/mL Performed By: #### 2 [id number] ####[facility] [address] [place] [address] Phencyclidine Screen method >25 ng/mL Ql (U) Negative Normal Negative [facility] Comment on above: Result Comment: Nega tive Cutoff: <25 ng/mLThese drug screen results are to be used for medical (i.e., treatment) purposes only. Unconfirmed drug screening results must not be used for non-medical purposes (e.g., employment testing, legal testing). Performed By: #### 2 [id number] ####[facility] [address] [place] [address] Tetrahydrocannabinol Screen method >50 ng/mL Ql (U) Negative Normal Negative [facility] Comment on above: Result Comment: Nega tive Cutoff: <50 ng/mL Performed By: #### 2 [id number] ####[facility] [address] [place] [address] eGFRon 01-30-2018 GFR/1.73 sq M predicted among blacks MDRD vol rate/area (S/P/Bld) mL/min/{1.73_m2} Normal >=59 [facility] Comment on above: Order Comment: Order added by Discern Expert. Result Comment: eGFR is race adjusted. AA=. Performed By: #### 2 [id number], [id number] ####[facility] [address] [place] [address] GFR/1.73 sq M predicted among non-blacks MDRD vol rate/area (S/P/Bld) mL/min/{1.73_m2} Normal >=59 [facility] Comment on above: Order Comment: Order added by Discern Expert. Result Comment: Liner Man henrry kidney disease could be indicated at eGFR's of less than 60 mL/min/1.73m2. Kidney failure is indicated at less than 15 mL/min/1.73m2. Performed By: #### 2 [id number], [id number] ####[facility] [address] [place] [address] Encounters Encounter Date Encounter Type Care Provider Facility Start: 04-26-2023 End: 04-26-2023 ambulatory LYNETTE CROCKETT Not Available Start: 03-03-2023 End: 03-04-2023 ambulatory [facility] Start: 12-02-2022 End: 12-03-2022 ambulatory [facility] Start: 10-20-2022 End: 10-21-2022 ambulatory [facility] Start: 09-24-2022 End: 09-24-2022 ambulatory [facility] Start: 09-13-2022 End: 09-13-2022 ambulatory [facility] Start: 09-13-2022 End: 09-13-2022 Encounter for preprocedural laboratory examination [facility] Start: 09-13-2022 End: 09-13-2022 ambulatory [facility] Start: 09-09-2022 End: 09-10-2022 ambulatory [facility] Start: 09-07-2022 End: 09-07-[address] LYNETTE CRCOKETT Facility: Start: 01-30-2018 End: 01-30-2018 Emergency department patient visit Chaya Jeremie Facility:[facility] Payers Date Payer Category Payer Unknown [id number] 2022 Unknown [id number] 2022 Unknown [id number] 2021 Unknown [id number] 2018 Private Health Insurance [id number] 1975 Unknown [id number] 1975 Unknown [id number] 1959 Private Health Insurance [id number] 1959 Unknown [id number] Progress note 12-02-2022 Note Date & Type Note Facility 12-02-2022 Note Attestation signed by Mouna Fuentes MD at 12/06/2022 2:49 PM As the teaching physician, I have personally performed or re-performed the history of present illness, physical exam and medical decision making activities of the encounter and verified the medical student's documentation. I made pertinent changes as necessary to ensure accurate documentation. Orthopedic Surgery Subjective Follow-up and Pain of the Right Hand ([facility] Injury) 12/02/22 Yuval Musa is a 47 y.o. ambidextrous male presenting 12 weeks s/p closed reduction and percutaneous pinning of right small finger bony mallet finger on 09/13/2022. Patient had pins removed on 10/20/2022. He presents today for follow-up evaluation. He denies any pain but his concerned with the swelling in his finger. He denies any fevers/chills. Patient states he is unable to fully flex or fully extend distal phalanx. Patient's current work restriction is 10lbs. Review of Systems unremarkable aside from what is noted in HPI Swelling Patient History Past Surgical History: Procedure Laterality Date CLOSED REDUCTION HAND FRACTURE Right 09/13/2022 with percutaneous pinning, small finger COLONOSCOPY Past Medical History: Diagnosis Date Diverticulitis Hypertension Hypothyroid Objective General: Body mass index is 40.42 kg/m???. No acute distress, comfortable Respiratory: Unlabored breathing with normal rate, no cough Cardiovascular: Warm well perfused extremities Psych: Appropriate mood behavior MSK: Examination of the right hand revealed well healed pin sites. There is residual swelling of right small finger without erythema or warmth. Nontender to palpation or with active and passive ROM. Extensor lag at DIP is noted at 50 degrees. Flexion of DIP is 45 degrees. Small finger is able to touch hypothenar eminence of flexion. Imaging personally reviewed: Assessment/Plan Yuval Musa is a 47 y.o. male 12 weeks s/p closed reduction and percutaneous pinning of right small finger for bony mallet finger. Patient had pins removed on 10/20/2022. Residual swelling of right small finger is present. - discussed with patient swelling is not of infectious nature and will likely slowly decrease over time. -patient can return to work with no restrictions. -follow-up in 3 months with X-rays to evaluate for any signs of post-traumatic arthritis. Matthew Angel, MS-3 Medical Student 12/02/22 10:13 AM [facility] Progress note 10-20-2022 Note Date & Type Note Facility 10-20-2022 Note Orthopedic Surgery Subjective Pain of the Right Little Finger Yuval Musa is a 47 y.o. year old ambidextrous male presenting 5 weeks following closed reduction and percutaneous pinning of a bony mallet finger date of 09/13/2022. Presently patient has had restrictions of no use of the right hand. Patient reports no significant pain. Patient History Past Surgical History: Procedure Laterality Date CLOSED REDUCTION HAND FRACTURE Right 09/13/2022 with percutaneous pinning, small finger COLONOSCOPY Past Medical History: Diagnosis Date Diverticulitis Hypertension Hypothyroid Objective General: Body mass index is 40.42 kg/m???. No acute distress, comfortable Respiratory: Unlabored breathing with normal rate, no cough Cardiovascular: Warm well perfused extremities Psych: Appropriate mood behavior MSK: Examination of the right hand revealed that the pin sites were clean and intact. Is nontender to palpation. His motion was slightly diminished as expected. Flexion of the MP joint was measured to be 90 degrees, PIP 50 degrees. With attempted flexion he was able, then 3.5 cm of the distal palmar flexion crease. Radiographs of the finger have been obtained and reviewed noted was that there is definite signs of healing of the fracture with no residual subluxation. Assessment/Plan Yuval Musa is a 47 y.o. year old male with status post treatment of a closed bony mallet injury. The pins were removed uneventfully. Patient was provided with an aluminum foam splint for protection. He was allowed to work with a 5 pound restriction of the right hand for period of 4 weeks. He will be reassessed again at that time with repeat radiographs of the right small finger. A C9 will be submitted for 4-week course of occupational therapy 3 times per week to address motion and strengthening of the upper extremity. [facility] Progress note 09-24-2022 Note Date & Type Note Facility 09-24-2022 Note -------- Attestation signed by Mouna Fuentes MD at 10/05/2022 10:09 AM I personally saw and examined the patient on the same date of service as resident/fellow . I discussed the findings and therapeutic plan with the resident/fellow . I agree with the documentation, except for any edits/updates below. Teaching Physician's Revisions: -------- Orthopedic Surgery 09/13/2022 Closed Reduction , Percutaneous Pinning, Fracture, Small Finger - Right Yuval Musa comes in for a post-operative visit after having a right closed reduction and percutaneous pinning of a bony mallet finger on his right small finger done on 09/13/2022. Today he is doing well and has no unexpected complaints. Pain is under control and he denies any new numbness/tingling/weakness. Physical Exam: The incision site is healing well. There is no erythema, drainage or signs of infection. Tenderness is mild and localized to the surgical site. Sensation is present present to light touch. Range of motion is appropriate for this time. Assessment: Yuval Musa is a 46 y.o. year old male Plan: 46-year-old male who is status post right small finger closed reduction percutaneous pinning of a bony mallet injury. DOS: 09/13/2022 -We will continue work restrictions of no use of right hand for any pushing/pulling/lifting for 4 more weeks. -Return to clinic in 4 weeks time for reevaluation. We will repeat x-rays at that visit. We will plan on removing pins at that time which will be a total course of [address] weeks with pins in [address] -We will submit C9 for 4 weeks of postoperative OT to begin after next visit -Patient may begin showering at this time -He will continue use of the aluminum foam splint while at work and in situations where the finger should have some extra protection Jason Diaz MD Orthopedic Surgery, PGY-3 [facility] Pager: [phone] 09/24/22 8:24 AM [facility] Clinical Note 09-13-2022 Note Date & Type Note Facility 09-13-2022 Note Patient: Yuval Pedro at Procedure Summary Date: 09/13/22 Room / Location: [address] [place] Anesthesia Start: 1339 Anesthesia Stop: 1418 Procedure: CLOSED REDUCTION , PERCUTANEOUS PINNING, FRACTURE, SMALL FINGER (Right: Little Finger) Diagnosis: Displaced fracture of distal phalanx of unspecified finger, initial encounter for open fracture (Displaced fracture of distal phalanx of unspecified finger, initial encounter for open fracture [S62.639B]) Surgeons: Mouna Fuentes MD Responsible Provider: Emmanuel Hu MD Anesthesia Type: MAC ASA Status: 2 Anesthesia Type: MAC Vitals Value Taken Time BP 150/87 09/13/22 1428 Temp 36.2 ???C (97.2 ???F) 09/13/22 1413 Pulse 80 09/13/22 1428 Resp 16 09/13/22 1428 SpO2 94 % 09/13/22 1428 Anesthesia Post Evaluation Patient location during evaluation: PACU Patient participation: complete - patient participated Level of consciousness: awake Pain score: 1 Pain management: adequate Airway patency: patent Cardiovascular status: acceptable Respiratory status: acceptable Patient is hemodynamically stable and is able to be discharged from PACU per anesthesia protocol. No notable events documented. [facility] Clinical Note 09-13-2022 Note Date & Type Note Facility 09-13-2022 Note Patient: Yuval Pedro at Procedure Information Date/Time: 09/13/22 1400 Procedure: PINNING, FRACTURE, PERCUTANEOUS SMALL FINGER (Right: Little Finger) - C-arm Location: [facility] OR [address] [place] [address] OR Surgeons: Mouna Fuentes MD Relevant Problems Anesthesia (within normal limits) Cardio > 4 METS denies chest pain/SOB Endo BMI 40 /Renal (within normal limits) Neuro/Psych (within normal limits) Pulmonary (within normal limits) Clinical information reviewed: Tobacco Allergies Meds Med Hx Surg Hx Fam Hx Soc Hx Physical Exam Airway Mallampati: II TM distance: >3 FB Neck ROM: full Cardiovascular - normal exam Dental Pulmonary - normal exam Abdominal Anesthesia Plan ASA 2 MAC The patient is not a current smoker. Patient was not previously instructed to abstain from smoking on day of procedure. Patient did not smoke on day of procedure. intravenous induction Anesthetic plan and risks discussed with patient. Plan discussed with CAA. Additional Equipment Requests [facility] Progress note 09-09-2022 Note Date & Type Note Facility 09-09-2022 Note -------- Attestation signed by Mouna Fuentes MD at 09/13/2022 12:20 PM I personally saw and examined the patient on the same date of service as resident/fellow . I discussed the findings and therapeutic plan with the resident/fellow . I agree with the documentation, except for any edits/updates below. Teaching Physician's Revisions: -------- Orthopedic Surgery Subjective Chief complaint: Chief Complaint Patient presents with Right Hand - Pain 09/09/22 Yuval Musa is a 46 y.o. year old male presenting for evaluation of right hand small finger crush injury with subsequent open fracture dislocation at work two days ago. He went to [facility] where they treated his finger. He was given a tetanus shot and has been on antibiotics. He denies fever, chills, nausea, vomiting, headache, chest pain. Patient History History reviewed. No pertinent surgical history. Past Medical History: Diagnosis Date Diverticulitis Hypertension Hypothyroid Objective General: Body mass index is 39.33 kg/m???. No acute distress, comfortable Respiratory: Unlabored breathing with normal rate, no cough Psych: Appropriate mood behavior Right hand: Inspection- Laceration repaired with sutures along the volar ulnar aspect of his small finger spanning the PIP and DIP. Tendons- FDP and FDS in intact of the small finger. Sensation- SILT along the radial and ulnar aspect of the volar small finger and the volar tip of the finger. Vascular- Appropriate cap refill of the small finger. Imaging: Radiographs of right hand demonstrate small finger distal phalanx base fracture with intra-articular involvement. The small finger distal phalanx is subluxed anteriorly. Assessment/Plan Yuval Musa is a 46 y.o. year old male who suffered a right hand small finger open distal phalanx base fracture with intra-articular involvement initially treated at [facility] and sent to our clinic for further care. Given his injury, the patient will benefit from surgical repair with closed reduction and percutaneous pinning of his fracture. -Submit C9 for diagnosis of right hand small finger open distal phalanx base fracture with intra-articular involvement -Submit C9 for surgical repair with closed reduction and percutaneous pinning of his right hand small finger distal phalanx fracture. -Patient was explained risks and benefits of surgery and surgical consent obtained today. -Patient should continue to practice daily dressing changes and wear the splint that he has. -Continue with antibiotics. - Patient will be off work for 2 weeks. Matthew Gill MD PGY-3 Orthopedic Surgery [facility] By using the attestations below, the signing clinician agrees that I have read and verify that the documentation has been personally reviewed by me and ensure that the documentation accurately reflects the encounter. GC: I personally saw this patient on the day of the encounter, performed the winslow portion(s) of the service and participated in the management and confirm the resident's documentation. Please note there may be an additional personal documentation from me. [facility] Clinical Note 09-07-2022 Note Date & Type Note Facility 09-07-2022 Note PROCEDURE: XR FINGER MIN 2 VIEWS HISTORY: Crushing injury of hand ; post reduction and splinting; acute right fifth finger pain COMPARISON: XR hand right 09/07/2022 FINDINGS: BONES:Anterior subluxation of the distal phalanx of the fifth digit with separate large posterior corner fragment. Distal fragments along the lateral margin of the tuft. SOFT TISSUES:Soft tissue swelling fifth digit. EFFUSION:None visible. OTHER: Negative. IMPRESSION: 1. Reduction/partial reduction of the fifth digit distal phalanx. Anterior subluxation will likely persistent due to fracture/avulsion of the posterior corner of the distal phalanx. Electronically authenticated by: DIONTE GONZALEZ Date: 2022-09-07 15:01 [facility] Clinical Note 09-07-2022 Note Date & Type Note Facility 09-07-2022 Note PROCEDURE: XR HAND R T MIN 3V COMPARISON: None. HISTORY: Crushing injury of hand FINDINGS: BONES:3.5 mm dorsal plate avulsion fracture base of the fifth distal phalanx with volar subluxation of the fifth distal phalanx in relation to the middle phalanx. Additional calcification along the tuft of the fifth distal phalanx could represent a separate fracture SOFT TISSUES:Soft tissue swelling and subcutaneous air EFFUSION:None visible. OTHER: Negative. IMPRESSION: Fracture dislocation fifth distal phalanx Electronically authenticated by: MARVA GUNDERSON Date: 2022-09-07 13:09 [facility] Summary Purpose Family History No Family History Records FoundNo Family History Records FoundNo Family History Records FoundNo Family History Records Found Advance Directives No Advanced Directives Records FoundNo Advanced Directives Records FoundNo Advanced Directives Records FoundNo Advanced Directives Records Found Additional Source Comments (unrecognized sect ion and content) No Status Records FoundNo Status Records FoundNo Status Records FoundNo Status Records Found INFORMATION SOURCE (unrecogn ized section and content) DATE CREATED AUTHOR 02/16/2018 [facility] DATE CREATED AUTHOR AUTHOR'S ORGANIZ ATION 09/09/2022 [facility] DATE CREATED AUTHOR AUTHOR'S ORGANIZ ATION 03/04/2023 [facility] DATE CREATED AUTHOR AUTHOR'S ORGANIZ ATION 04/28/2023 [facility] FOR RECORDS PERTAINING TO PATIENTS WHO ARE OR HAVE BEEN ENROLLED IN A CHEMICAL DEPENDENCY/SUBSTANCEABUSE PROGRAM, SOME INFORMATION MAY BE OMITTED. This clinical summary was aggregated from multiple sources. Caution should be exercised in using it in the provision of clinical care. This summary normalizes information from multiple sources, and as a consequence, information in this document may materially change the coding, format and clinical context of patient data. In addition, data may be omitted in some cases. CLINICAL DECISIONS SHOULD BE BASED ON THE PRIMARY CLINICAL RECORDS. [facility] [employer]. provides no warranty or guarantee of the accuracy or completeness of information in this document.
--- NOTE | 2025-02-10 22:18 | XR_ITS ---
[place] [address] Patient Name: YUVAL BLANC MRN: [id number] date: 1975 Sex: M Assigned Patient Location: ED.MAIN Current Patient Location: Accession/Order Number: [id number] Exam Date: 02/10/2025 22:26 Report Date: 02/11/2025 07:49 At the request of: JESSI CARRION Procedure: XR chest 1V XR chest 1V 02/10/2025 10:32 PM SIGNS AND SYMPTOMS: ^dizziness ^Y PROTOCOL: Frontal radiograph of the chest COMPARISON: 05/28/2020 FINDINGS: The trachea is midline. The heart and mediastinal structures are within normal limits. The lung parenchyma is clear. The bony thorax is intact. XR/XR chest 1V IMPRESSION: No acute cardiopulmonary pathology. Impression dictated by: Mark Wilson M.D. 02/11/2025 7:49 AM Dictation Location: [place] [address] Electronically authenticated by: [id number] Y Date: 02/11/2025 07:49
--- NOTE | 2025-02-10 22:18 | ECG_ITS ---
[facility] Test Date: 2025-02-10 Pat Name: YUVAL BLANC Department: Room: - Gender: Male [employer]: : 1975 Requested By: Yao Zhang Order Number: [id number] Reading MD: SHOBHA WOODWARD M.D. Measurements Intervals Occidental Rate: 80 P: 55 OR: 160 QRS: 35 QRSD: 100 T: 44 QT: 376 QTc: 412 Interpretive Statements 1100 Sinus rhythm 9110 normal ECG No previous ECG available for comparison Electronically Signed On 02-11-2025 7:09:26 EDT by SHOBHA WOODWARD M.D.
[2025-02-10] MEDS: 0.9 % SODIUM CHLORIDE 1,000 ML 999 ML IV (22:34)
--- NOTE | 2025-02-10 22:56 | ED.DIZZY1 ---
HPI - Dizziness General Chief Complaint: Dizziness Stated Complaint: Dizziness Time Seen by Provider: 02/10/25 22:08 Source: patient Mode of arrival: walk-in Limitations: no limitations History of Present Illness HPI Narrative: cc -dizziness Patient suddenly developed dizziness while at work. He apparently got hot, sweaty. No chest pain, palpitations, shortness of breath. No syncope. He denied any recent injury or illness. No prior history of this happening. He denied prior history of cardiac disease. Prior medical history includes hypertension and hypothyroidism. BP was up a little when I got it checked by my sister. 156/94, he told me He is now feeling back to normal. Related Data Home Medications ?Medication ?Instructions ?Recorded ?Confirmed bupropion HCl 150 mg 24 hr tablet, 300 mg PO DAILY 01/14/24 02/10/25 extended release levothyroxine 88 mcg tablet 88 mcg PO DAILY 01/14/24 02/10/25 lisinopril 20 1 tab PO DAILY 01/14/24 02/10/25 mg-hydrochlorothiazide 25 mg tablet Previous Rx's ?Medication ?Instructions ?Recorded amoxicillin 875 mg-potassium 1 tab PO Q12H #14 tabs 01/14/24 clavulanate 125 mg tablet Allergies Allergy/AdvReac Type Severity Reaction Status Date / Time No Known Drug Allergies Allergy Verified 02/10/25 22:23 PFSH PFSH Social History Little interest or pleasure in doing things: not at all Feeling down, depressed, or hopeless: not at all Exam Narrative Exam Narrative: Nurses notes and vital signs reviewed and patient is not hypoxic. afebrile General: Well-appearing and in no apparent distress. Skin: Warm, dry, no pallor noted. No rash. Eye: Pupils are equal, round and EOMI. No scleral icterus. Ears, Nose, Mouth, and Throat: TM are clear, no posterior oropharynx erythema or nasal mucosal hypertrophy, uvula is mid-line Oral mucosa is moist Cardiovascular: Regular Rate and Rhythm without murmur, gallop or rub. Respiratory: No accessory muscle use or respiratory distress. Lungs are clear to auscultation, no wheezing, rales or rhonchi Musculoskeletal: normal ROM, no calf or popliteal tenderness, no lower extremity edema/swelling GI: Abdomen is soft, non-distended. Normal bowel sounds. No tenderness to palpation. No rebound, guarding, or rigidity noted. Neurological: A&O x4. No cranial nerve dysfunction observed. No truncal ataxia. Moves all extremities. Sensation intact. Psychiatric: Cooperative and interactive. Normal mood and affect. Constitutional Vital Signs, click to edit/add: Last Vital Signs Pulse 86 02/10/25 23:54 Resp 23 H 02/10/25 22:22 BP 136/83 02/10/25 23:54 Pulse Ox 96 02/10/25 23:26 O2 Del Method Room Air 02/10/25 22:15 Course Vital Signs Vital signs: Vital Signs Pulse Rate 82 02/10/25 22:15 Respiratory Rate 16 02/10/25 22:15 Blood Pressure 154/92 H 02/10/25 22:15 Pulse Oximetry 97 02/10/25 22:15 Oxygen Delivery Method Room Air 02/10/25 22:15 Pulse Rate 86 02/10/25 23:54 Respiratory Rate 23 H 02/10/25 22:22 Blood Pressure 136/83 02/10/25 23:54 Pulse Oximetry 96 02/10/25 23:26 Oxygen Delivery Method Room Air 02/10/25 22:15 MDM - Dizziness MDM Narrative Medical decision making narrative: Patient was placed on delphi developer and EKG obtained. Blood drawn and sent for evaluation. Orthostatic vital signs obtained. Patient was ordered to receive a liter of normal saline IV fluid. Portable chest x-ray was also obtained. Vyikg-ir-[id number] glucose equal 93. Orthostatics were negative. Blood test were unremarkable including negative thyroid service, negative troponin and normal magnesium. He was informed of results and we talked about potential causes of his symptoms. He is stable for discharge home and will follow-up with his primary care provider, Dr. Sterling, or return to the ED if he develops any new or worsening symptoms.. Differential Diagnosis Differential diagnosis: Likely benign paroxysmal positional vertigo, orthostatic hypotension, vertebral basilar insufficiency, cerebrovascular accident, acute vestibular neuronitis and transient cerebral ischemia Medical Records Attestation: I reviewed the patient's medical records. Lab Data Attestation: I reviewed the patient's lab results. Labs: Lab Results 02/10/25 02/10/25 Range/Units 22:25 22:39 WBC 8.5 (4.0-11.0) 10^3/uL RBC 4.77 (4.70-6.10) 10^6/uL Hgb 15.3 (14.0-18.0) g/dL Hct 45.2 (42.0-54.0) % MCV 94.8 H (80.0-94.0) fL MCH 32.1 (25.9-34.0) pg MCHC 33.8 (29.9-35.2) g/dL RDW 12.6 (11.0-15.0) % Plt Count 270 (150-450) 10^3/uL MPV 9.8 (9.5-13.5) fL Neut % (Auto) 57.9 (43.0-75.0) % Lymph % (Auto) 28.7 (20.5-60.0) % [place] % (Auto) 11.0 (1.7-12.0) % Eos % (Auto) 1.2 (0.9-7.0) % Baso % (Auto) 0.8 (0.2-2.0) % Neut # (Auto) 4.9 (1.4-6.5) 10^3/uL Lymph # (Auto) 2.4 (1.2-3.8) 10^3/uL [place] # (Auto) 0.9 H (0.3-0.8) 10^3/uL Eos # (Auto) 0.1 (0.0-0.7) 10^3/uL Baso # (Auto) 0.1 (0.0-0.1) 10^3/uL Abs Immat Gran (auto) 0.03 (0.00-0.03) 10^3/uL Imm/Tot Granulo (auto) 0.4 (0.0-0.5) % Sodium 138 (136-145) mmol/L Potassium 3.7 (3.5-5.1) mmol/L Chloride 103 (98-107) mmol/L Carbon Dioxide 25.0 (21.0-32.0) mmol/L Anion Gap 13.7 BUN 17.0 (7.0-18.0) mg/dL Creatinine 1.09 (0.70-1.30) mg/dL Est GFR ( Amer) >60 (>=60 mL/min/1.73m^2) Est GFR (Non-Af Amer) >60 (>=60 mL/min/1.73m^2) BUN/Creatinine Ratio 15.6 Glucose 99 (74-106) mg/dL Calcium 8.9 (8.5-10.1) mg/dL Magnesium 2.2 (1.8-2.4) mg/dL Troponin I High Sens <4.0 L (4.0-76.1) pg/mL Free T4 1.06 (0.76-1.46) ng/dL Free T3 3.01 (2.18-3.98) pg/mL POC Glucose 93 (74-106) mg/dL Imaging Data Chest x-ray: Attestation: I personally reviewed and interpreted this imaging study as follows: My impression: No acute cardiopulmonary disease. No cardiomegaly. No pneumothorax, effusion or consolidation. ECG Data Attestation: I personally reviewed and interpreted this ECG as follows: Interpretation: EKG interpretation: Emergency Department physician interpretation. Normal sinus rhythm at 80bpm. Normal axis, normal intervals and no ST segment elevation or depression. Normal EKG. Discharge Plan Discharge Chief Complaint: Dizziness Clinical Impression: Dizziness Patient Disposition: Home, Self-Care Time of Disposition Decision: 00:05 Prescriptions / Home Meds: No Action bupropion HCl 150 mg tablet extended release 24 hr 300 mg PO DAILY levothyroxine 88 mcg tablet 88 mcg PO DAILY lisinopril-hydrochlorothiazide 20-25 mg tablet 1 tab PO DAILY amoxicillin-pot clavulanate 875-125 mg tablet 1 tab PO Q12H Qty: 14 0RF Print Language: Lebanese Instructions: Dizziness (ED) Referrals: Sina Sterling MD [Primary Care Provider, Family Practice] - 1 week
[2025-02-10 23:16] LABS: Hematocrit 45.2 % (42.0-54.0); Hemoglobin 15.3 g/dL (14.0-18.0); Immature Granulocytes Abs Auto 0.03 10^3/uL (0.00-0.03); Immature Granulocytes Pct Auto 0.4 % (0.0-0.5); Lymphocytes Absolute Auto 2.4 10^3/uL (1.2-3.8); Mean Corpuscular HGB Conc 33.8 g/dL (29.9-35.2); Mean Corpuscular Hemoglobin 32.1 pg (25.9-34.0); Mean Corpuscular Volume 94.8 fL (80.0-94.0); Platelet Count 270 10^3/uL (150-450); Red Blood Count 4.77 10^6/uL (4.70-6.10); White Blood Count 8.5 10^3/uL (4.0-11.0)
[2025-02-10 23:48] LABS: Anion Gap 13.7; Blood Urea Nitrogen 17.0 mg/dL (7.0-18.0); Calcium 8.9 mg/dL (8.5-10.1); Carbon Dioxide 25.0 mmol/L (21.0-32.0); Chloride 103 mmol/L (98-107); Estimated GFR (African America >60 (>=60 mL/min/1.73m^2); Estimated GFR (Non-African Ame >60 (>=60 mL/min/1.73m^2); Free T3 3.01 pg/mL (2.18-3.98); Glucose 99 mg/dL (74-106); Magnesium 2.2 mg/dL (1.8-2.4); Potassium 3.7 mmol/L (3.5-5.1); Sodium 138 mmol/L (136-145)
== END 2025-02-11 00:15 | disposition home or self-care (01) ==
PROVIDERS: Emergency Provider Emergency Medicine; PCP Family Medicine
DX: R42 Dizziness and giddiness (principal)
CPT/HCPCS: 36415; 71045; 80048; 83735; 84439; 84481; 84484; 85025; 93005; 99284; 99285

== ENCOUNTER 2025-04-10 14:36 | Outpatient (OUT) | payer BC, SELFPAY ==
--- OUTSIDE RECORDS SUMMARY | 2020-09-11 04:45 | XMS_ITS | Continuity of Care Document ---
Author Organization [facility] Address [address] [place] [address] Phone Care Team Providers Care Certified Coder Name Role Phone Visci DO DO, Charles Unavailable Unavailable Procedures Procedure Date Moderna COVID Vaccine Admin Dose 2 COVID-19 Pfizer Advance Directives Directive Yes / No Effective Date File Name No Information Encounters Encounter Description Practice Location Reason(s) For Visit Diagnoses Date Provider Providers Copied on Encounter [facility], [address] [place] [address], [place], [id number], [place] tel:[phone] COVID E[facility]D No Information Visci DO Soto. [address] [place], [place], [id number], [place]. tel:[phone] Family History Family Member Type Diagnosis Age At Onset No Information Immunizations Vaccine Date Status Comments Pfizer COVID administered Source: [facility] unization Record Payers Payer name Insurance type Covered democrat ID Authoriza tion(s) No Information Social History Type Description Quantity Date Captured Comments Alcohol Use Details Unknown Caffeine Use Details Unknown Tobacco Use Status No Information Smoking Status No Information Sex Male Sexual Orientation Straight or heterosexual Gender Identity Male Chief Complaint And Reason For Visit No Information Reason For Referral Reason For Referral No Information History Of Present Illness Encounter Date Complaint History Of Prese nt Illness No Information Functional Status Date Functional Assessmen t No Information Instructions Date Instruction Additional Infor mation No Information Assessments Type Assessment Date No Information Patient Care Teams Name Effective Dates (start - stop) Status Members No Information
--- OUTSIDE RECORDS SUMMARY | 2020-09-11 04:45 | XMS_ITS | Continuity of Care Document ---
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 [address] [place], [place], [id number], [place]. tel:[phone] Family History Family Member Type Diagnosis Age At Onset No Information Immunizations Vaccine Date Status Comments Pfizer COVID administered Source: [facility] unization Record Payers Payer name Insurance type [...]
--- OUTSIDE RECORDS SUMMARY | 2020-09-11 04:45 | XMS_ITS | Continuity of Care Document ---
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 [address] [place], [place], [id number], [place]. tel:[phone] Family History Family Member Type Diagnosis Age At Onset No Information Immunizations Vaccine Date Status Comments Pfizer COVID administered Source: [facility] unization Record Payers Payer name Insurance type Covered libertarian ID Authoriza tion(s) No Information Social History [...]
--- OUTSIDE RECORDS SUMMARY | 2025-04-10 14:40 | XMS_ITS | Clinical Summary ---
Author Organization [facility] Address [address] [place] [address] Care Team Providers Care Boom Master Name Role Phone Sina Sterling MD Primary Care Provider [phone] Allergies No known active allergies Medications MedicationSigDispense QuantityRefillsLast FilledStart DateEnd DateStatus albuterol HFA 90 mcg/act inhaler Inhale 2 puffs every 4 (four) hours if needed for wheezingActive testosterone cypionate (Depo-Testosterone) 200 MG/ML injection Indications:Testicular hypofunctionINJECT 1 ML INTRAMUSCULARLY EVERY 2 WEEKS 6 mL 4Active levothyroxine (Synthroid, Levoxyl) 88 MCG tablet Indications:Primary hypothyroidismTAKE 1 TABLET (88 MCG) BY MOUTH IN THE MORNING. 30 tablet 1114Active busPIRone (Buspar) 15 MG tablet Indications:Generalized anxiety disorderTAKE ONE TABLET BY MOUTH TWICE A DAY NEEDED 60 tablet 5Active buPROPion XL (Wellbutrin XL) 300 MG 24 hr tablet Indications:Major depressive disorder, single episode, mildTAKE ONE TABLET BY MOUTH ONCE DAILY IN THE MORNING 30 tablet 5Active lisinopril-hydroCHLOROthiazide 20-25 MG tablet Indications:Essential hypertension, benignTAKE ONE TABLET BY MOUTH ONCE DAILY 30 tablet 5065Active Active Problems ProblemNoted DateDiagnosed DateEssential hypertension, ocqzyg7304/26/2023 Assessment & Plan (04/26/2023 2:24 PM EST): BP controlled and monitor PRN. Erectile trnvgsbakte49/05/2023eneralized anxiety /05/2023 Assessment & Plan (04/26/2023 2:24 PM EST): Symptoms persist and increase wellbutrin. Warned will take 2-3 weeks to notice improvement in mood. Mijgypioogmrn45/05/2775Bdijykeafwl42/05/2023rimary liweykjaekrngl14/05/2023Male zashdqjriess38/05/2023 Assessment & Plan (04/26/2023 2:25 PM EST): Symptoms improved with testosterone replacement and continue. Major depressive disorder, single episode, mild04/26/2023 Assessment & Plan (04/26/2023 2:24 PM EST): Symptoms persist and increase wellbutrin. Warned will take 2-3 weeks to notice improvement in mood. Immunizations ImmunizationAdministration DatesNext OmiUtoe7309/07/2022 Family History Medical HistoryRelationNameCommentsHypertensionFatherHypothyroidismFather Coronary artery diseaseMotherHypertensionMotherHypothyroidismMotherRelationName StatusCommentsFatherMotherDeceased Social History Tobacco UseTypesPacks/DayYears UsedDateSmoking Tobacco: NeverSmokeless Tobacco: CurrentChew Tobacco Cessation:Counseling Given: Not Answered Alcohol UseStandard Drinks/WeekCommentsYes2 (1 standard drink = 0.6 oz pure alcohol)Sex and Gender InformationValueDate RecordedSex Assigned at BirthNot on fileLegal IazPrfn0208/04/2022 6:40 PM EDTGender IdentityNot on fileSexual OrientationNot on file Last Filed Vital Signs Vital SignReadingTime TakenCommentsBlood Sdoayzac021/9004/26/2023 2:04 PM EST Zfryz6978/05/2023 2:04 PM HADDtjfqfmlrub50.8 ??C (98.2 ??F)04/26/2023 2:04 PM ESTRespiratory Rate--Oxygen Tpymytiswq71%04/26/2023 2:04 PM ESTInhaled Oxygen Concentration--Smsroq064 kg (301 lb)04/26/2023 2:04 PM NUHWewrmc956.9 cm (6') 04/26/2023 2:04 PM ESTBody Mass Index40.8204/26/2023 2:04 PM EST Plan of Treatment Not on file Insurance Care Teams Team MemberRelationshipSpecialtyStart DateEnd Date Sina Sterling MD PCP - GeneralFamily Medicine11/16/22
--- OUTSIDE RECORDS SUMMARY | 2025-04-10 14:40 | XMS_ITS | Clinical Summary ---
Author Organization [facility] Address [address] [place], [place] [address] Care Team Providers Care Pollution Control Chemist Name Role Phone Unavailable Primary Care Provider Unavailabl e Social History Tobacco UseTypesPacks/DayYears UsedDateSmoking Tobacco: Never AssessedSex and Gender InformationValueDate RecordedSex Assigned at BirthNot on fileLegal Sex Male02/13/2019 7:58 AM EDTGender IdentityNot on fileSexual OrientationNot on file Plan of Treatment Health MaintenanceDue DateLast DoneCommentsAnxiety Qcsmkbyqt17/10/1994Depression Qnowzqbap29/10/1994HIV Zweempglk70/10/1994Hepatitis C Novfyzrsb34/10/1994 DTaP,Tdap,Td Vaccine (1 - Tdap)09/29/1994Hepatitis B Vaccine (1 of 3 - 19+ 3- dose series)09/29/1994Lipid Swqstxhpi45/10/2011CT Uxzxaozjamor44/10/2021 Cologuard (FIT-DNA)09/29/20204377Bbotijcykkt17/10/2021olorectal Cancer Screening 09/29/2020iabetes Vlaxrjsyi48/10/2021Fecal Occult Blood09/29/2020igmoidoscopy 1Covid-19 Vaccine ( season)2025Influenza Vaccine (#1) 2025 Insurance
--- OUTSIDE RECORDS SUMMARY | 2025-04-10 14:40 | XMS_ITS | Clinical Summary ---
Author Organization [facility] Address [address] [place] [address] Care Team Providers Care Hospice Registered Nurse Name Role Phone Sina Sterling MD Primary Care Provider [phone] Allergies No known active allergies Medications MedicationSigDispense QuantityRefillsLast FilledStart DateEnd DateStatus lisinopriL-hydrochlorothiazide 20-25 mg tablet Take 1 tablet by mouth in the morning.08/26/2022ctive levothyroxine (Synthroid, Levoxyl) 88 mcg tablet Take 88 mcg by mouth in the morning.08/26/2022ctive cephalexin (Keflex) 500 mg capsule TAKE ONE CAPSULE BY MOUTH EVERY 8 HOURS09/07/2022ctive busPIRone (Buspar) 15 mg tablet Take 15 mg by mouth if needed in the morning and at bedtime.08/26/2022ctive buPROPion XL (Wellbutrin XL) 300 mg 24 hr tablet Take 300 mg by mouth in the morning.08/26/2022ctive FLUoxetine (PROzac) 10 mg capsule Take 10 mg by mouth in the morning.11/19/2022ctive Active Problems ProblemNoted DateDiagnosed DateDisplaced fracture of distal phalanx of unspecified finger, initial encounter for open /20/2023 Overview (09/09/2022): Added automatically from request for surgery [id number] Social History Tobacco UseTypesPacks/DayYears UsedDateSmoking Tobacco: NeverSmokeless Tobacco: CurrentChew Tobacco Cessation:Ready to Q uit: Not Asked; Counseling Given: Not Answered Alcohol UseStandard Drinks/OibnSthxjkbbJfo14 (1 standard drink = 0.6 oz pure alcohol)Humiliation, Afraid, Rape, and Kick questionnaireAnswerDate Recorded Within the last year, have you been afraid of your partner or ex-partner?No 12/02/2022Within the last year, have you been humiliated or emotionally abused in other ways by your partner or ex-partner?No12/02/2022Within the last year, have you been kicked, hit, slapped, or otherwise physically hurt by your partner or ex-partner?No12/02/2022Within the last year, have you been raped or forced to have any kind of sexual activity by your partner or ex-partner?No12/02/2022HQ-2 AnswerDate RecordedPatient Health Questionnaire-2 [id number] Safety & EnvironmentAnswerDate RecordedWithin the last year, have you been afraid of your partner or ex-partner?No12/02/2022Within the last year, have you been humiliated or emotionally abused in other ways by your partner or ex-partner?No12/02/2022 Within the last year, have you been kicked, hit, slapped, or otherwise physically hurt by your partner or ex-partner?12/02/2022Within the last year, have you been raped or forced to have any kind of sexual activity by your part ner or ex-partner?No12/02/2022hysically or Sexually AbusedNot on file12/02/2022 Sex and Gender InformationValueDate RecordedSex Assigned at BirthNot on file Legal ImuRqjb6209/08/2022 3:09 PM EDTGender IdentityNot on fileSexual Orientation Not on file Last Filed Vital Signs Vital SignReadingTime TakenCommentsBlood Iwjpjnxe149/7804 2:43 PM EDT Ddnvx8844/24/2023 2:43 PM THTMmfygcmhkem03.2 ??C (97.2 ??F)09/13/2022 2:13 PM EDTRespiratory Wgon810009/13/2022 2:43 PM EDTOxygen Dtacoujulq86%09/13/2022 2:43 PM EDTInhaled Oxygen Concentration--Fjjenb710 kg (298 lb)12/02/2022 9:11 AM EDT Vnjano822.9 cm (6')12/02/2022 9:11 AM EDTBody Mass Index40.42012/02/2022 9:11 AM EDT Plan of Treatment Health MaintenanceDue DateLast DoneCommentsCT Qkjemuqqyebh32/10/1976Colonoscopy 1975Colorectal Cancer Aucagotdc76/10/1976FIT-DNA1975FIT1975 FOBT1975 7966Lkojxmzatnjuw94/10/1976Depression Eenwnibss24/10/1988Hepatitis B Vaccines (1 of 3 - 19+ 3-dose series)09/29/1994COVID-19 Vaccine (3 - 2024- season), 09/11/2020Influenza Vaccine (#1)2025 03/05/2020, 07/28/2019Zoster Vaccines (1 of 2)09/29/2025dult Psubisx2909/07/2032 09/07/2022HIB VaccinesAged OutNo longer eligible based on patient's age to complete this topicHPV VaccinesAged OutNo longer eligible based on patient's age to complete this topicIPV VaccinesAged OutNo longer eligible based on patient's age to complete this topicMeningococcal B VaccineAged OutNo longer eligible based on patient's age to complete this topicMeningococcal VaccineAged OutNo longer eligible based on patient's age to complete this topicPneumococcal Vaccine: Pediatrics (0 to 5 Years) and At-Risk Patients (6 to 64 Years)Aged Out No longer eligible based on patient's age to complete this topicRotavirus VaccinesAged OutNo longer eligible based on patient's age to complete this topic Medical Devices ImplantedTypeAreaManufacturerDevice IdentifierShelf Expiration DateModel / Serial / LotK-Wire,#1,[id number] - [id number] Implanted:Qty: 2 on 09/13/2022 by [facility]: Karime [id number] / / Insurance * Guarantor: BRENDA MONTERROSOAccount TypeRelation to PatientDate of PhoneBilling AddressWorkers UvziAbezulqk09/10/1976 [address] [place] [address] Care Teams Team MemberRelationshipSpecialtyStart DateEnd Date Sina Sterling MD [address] [place] [address] [facility]09/13/22
--- OUTSIDE RECORDS SUMMARY | 2025-04-10 14:42 | XMS_ITS | CCD ---
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 Name Role Phone Jeremie, Chaya Unavailable Unavailable Jeremie, Chaya Unavailable Unavailable LYNETTE CROCKETT~[phone] UNKNOWN Unavailable Unavailable NADERER, DR LYNETTE Bailey Primary Care Unavailable CINDY ., Admitting Unavailable CINDY ., Attending Unavailable JALYN, DR MARVA Sanchez Consulting Unavailable Zieber, Dionte Consulting Unavailable GRECHNY ., BLELA MCGINNIS Consulting Unavailabl e CINDY ., Consulting Unavailable ALFREDO, MOUNA Attending Unavailable ALFREDO, MOUNA Attending Unavailable ALFREDO, MOUNA Attending Unavailable ALFREDO, MOUNA Attending Unavailable ALFREDO, MOUNA Admitting Unavailable ALFREDO, MOUNA Attending Unavailable ALFREDO, MOUNA Referring Unavailable ALFREDO, MOUNA Referring Unavailable ALFREDO, MOUNA Referring Unavailable ALFREDO, MOUNA Referring Unavailable ALFREDO, MOUNA Referring Unavailable NADERER, LYNETTE Attending Unavailable Problems Active Problems Problem ClassificationProblemDateDocumented DateEpisodic/ChronicCrushing injury or internal injury (1 source)Crushing injury of right little finger, initial encounter; Translations: [CRUSHING INJURY RT LTL FINGER INIT]Onset: 57-81-4954TzkolxfsF Codes: Other specified and classifiable (1 source)Caught, crushed, jammed, or pinched between moving objects, initial encounter; Translations: [CAUGHT CRUSH/PINCH BTWN MOV OBJ INT]Onset: 09-09-2022 EpisodicFracture of upper limb (2 sources)Displaced fracture of distal phalanx of left little finger, initial encounter for open fracture; Translations: [Displaced fracture of distal phalanx of left little finger, initial encounter for open fracture]Onset: 03-03-2023 EpisodicImmunizations and screening for infectious disease (1 source)Encounter for immunization; Translations: [ENCOUNTER FOR IMMUNIZATION] Onset: 80-96-1948TkasrrgjUxxd wounds of extremities (1 source)Laceration without foreign body of right index finger without damage to nail, initial encounter; Translations: [LAC W/O FB RT IF W/O DMG NAIL INIT] Onset: 22-96-7536PugryetcUzlqb injuries and conditions due to external causes (3 sources)Unspecified injury of right wrist, hand and finger(s), initial encounter; Translations: [UNS INJ RTWRIST HAND FINGERS INIT]Onset: 09-07-2022 Episodic Past or Other Problems Problem ClassificationProblemDateDocumented DateEpisodic/ChronicFracture of upper limb (3 sources)Displaced fracture of distal phalanx of right little finger, initial encounter for closed fracture;Translations: [Displaced fracture of distal phalanx of unspecified finger, initial encounter for open fracture]Onset: 93-18-1669EvmjclsqTafdn acquired deformities (2 sources)Mallet finger of right finger(s); Translations: [Mallet finger of right finger(s)]Onset: 69-96-0126KisrmissQbaly connective tissue disease (2 sources)Pain in right hand; Translations: [Pain in right hand]Onset: 96-04-4544DuzovdleKwfhnxno codes; unclassified (2 sources)Pain, unspecified; Translations: [Pain, unspecified]Onset: 09-13-2022 Episodic Results Test NameValueInterpretationReference RangeFacilityFollow-Upon 12-02-2022 Follow-[id number] Yuval Musa 1975 M Date Provider Department Center 12/02/2022 BRYAN EVANS Family History Family history unknown: Yes Level of Service:55470 MS POSTOP FOLLOW UP VISIT RELATED TO ORIGINAL PX Reason for Visit and Comments: Follow-up [942681] - [facility] Injury Pain [136] - [facility] InjuryNormalUniversity of [facility] Children'[facility] HospitalOffice Visiton 90-04-2044Ggtcvv-up [id number] Yuval Musa 1975 M Date Provider Department Center 10/20/2022 373-ALFREDO, MOUNA MP ORTHO MPORTHO Family History Family history unknown: Yes Level of Service:98595 MS POSTOP FOLLOW UP VISIT RELATED TO ORIGINAL PX Reason for Visit and Comments: Pain [136][facility]2022 Follow-up [id number] Yuval Musa 1975 M Date Provider Department Center 09/24/2022 373-ALFREDOBRYAN ORTHO MPORTHO Family History Family history unknown: Yes Level of Service:68032 MS POSTOP FOLLOW UP VISIT RELATED TO ORIGINAL PX Reason for Visit and Comments: Post-op [483][facility] HospitalHPon 23-42-0564OCL&P reviewed. The patient was examined and there are no changes to the H&P.Normal [facility] HealthOPNOTEon 47-27-6762CRCZIWQZOPBB REDUCTION , PERCUTANEOUS PINNING, FRACTURE, SMALL FINGER (R) Operative Note Date: 09/13/2022 Location: [facility] OR Name: Yuval Musa, : 1975, Diagnosis Pre-op Diagnosis * Displaced fracture of distal phalanx of unspecified finger, initial encounter for open fracture [S62.639B] Post-op Diagnosis * Displaced fracture of distal phalanx of unspecified finger, initial encounter for open fracture [S62.639B] Procedures * CLOSED REDUCTION , PERCUTANEOUS PINNING, FRACTURE, SMALL FINGER Surgeons * Mouna Alfredo - Primary Procedure Summary Anesthesia: Regional ASA: II Estimated Blood Loss: 1 mL Implants Type Name Action Serial No. Pin K-WIRE,#1,[id number] - [id number] Implanted Pin K-WIRE,#1,[id number] - [id number] Used, Not Implanted Staff: Talent Development Consultant: Danni Evans RN Scrub Person: Kellee Rosenberg CST Indications: Yuval Musa is an 46 y.o. male who is having surgery for Displaced fracture of distal phalanx of unspecified finger, initial encounter for open fracture [S62.729B]. Procedure Details: The patient was seen in [...] PACU - hemodynamically stable. Condition: stable Mouna Fuentes LkgxiyHxakokdald of [facility] CenterPOCT GLUCOSE METER UNSOLICITED RESULTSon 13-13-2214Lppsyfc [Mass/Vol]97 mg/wMNcphtk31-064 [facility] HealthComment on above:Result Comment: epawlow Performed By: #### [id number] #### [facility] ([facility]) [address], [place] [address]DLat [phone] Attestation signed by Mouna Fuentes MD at [...] work two days ago. [facility]. He was [...] fracture with intra-articular involvement [facility] treated [facility] and sent to our clinic for further [...] weeks. Matthew Gill MD PGY-3 Orthopedic Surgery [facility] By using the attestations below, the [...] may be an additional personal documentation from me.[facility] Visiton 90-90-6173Yzfysb-up [id number] Yuval Musa 1975 M Date Provider Department Center 09/09/2022 Cornelio-BRYAN FUENTES ORTHO MPORTHO Family History Family history unknown: Yes Level of Service:13681 MS OFFICE/OUTPATIENT NEW LOW [facility] 30-44 MINUTES Reason for Visit and Comments: Pain [136][facility] HospitalCoding Summary.on 01-31-2018 Coding Summary.CODING DATE: 01/31/2018 [facility] STATUS: [facility] PAYOR: Commercial Insurance APC DESCRIPTION 5025 Level 5 Type A ED Visits ADMIT DX: REASON FOR VISIT DX: R45.851 Suicidal ideations F32.9 Major depressive disorder, single episode, unspecified FINAL DX: PRINCIPAL: F32.9 Major depressive disorder, single episode, unspecified SECONDARY: R45.851 Suicidal ideations I10 Essential (primary) hypertension Z79.899 Other penitentiary (current) drug therapy F17.210 Nicotine dependence, cigarettes, uncomplicated PYMT PROC APC STAT DESCRIPTION DOCTOR NAME DATE NOTE: The code number assigned matches the documented diagnosis and / or procedure in the patient's chart. However, the narrative phrase printed from the coding software may appear abbreviated, or result in slightly different terminology. Revised Coded By: Elizabeth Marcelo Revised Date Saved: 01/31/2018 09:52 amNormalCleveland Clinic Hillcrest HospitalAcetamnphn Lvlon 46-03-2638Kulnmxjvycxbf mass conc<92Nds29-94 [facility] HospitalComment on above:Performed By: #### [id number], [id number] ####[facility] [address] [place], [place] [address]Mmql Diffon 09-05-6767Uldfkcbah Auto #/vol (Bld)0.7 %Normal0.0-2.0[facility] HospitalComment on above:Order Comment: Order Added by Discern Expert. Performed By: #### 9702435, 3921102, 6585446, 10287995 ####[facility] [address] [place], [place] [address]Imozwahuv/Leukocytes Auto Pure number fraction (Bld)0.1 E9/LNormal0.0-0.2FOur Lady of Mercy HospitalComment on above:Order Comment: Order Added by Discern Expert.Performed By: #### 1364708, 2186094, 9022274, 11348660 ####[facility] [address] [place], [place] [address]Srjskenwopf/100 WBC Auto (Bld)0.6 %Normal0.0-8.0 [facility] HospitalComment on above:Order Comment: Order Added by Discern Expert.Performed By: #### 9082323, 6860300, 3738956, 34800111 ####[address] [place] [address] Eosinophils/Leukocytes Auto Pure number fraction (Bld)0.1 E9/LNormal0.0-0.5 [facility] HospitalComment on above:Order Comment: Order Added by Discern Expert.Performed By: #### 1025737, 6102691, 9792039, 99314374 ####[address] [address]Ohpzsniksjp/100 WBC Auto (Bld)30.2 %Gfoyys66.0-50.0[facility] HospitalComment on above: Order Comment: Order Added by Discern Expert.Performed By: #### 6572805, 6930383, 8789988, 85162513 ####[address] [address]Ulhsyhdwwui/Leukocytes Auto Pure number fraction (Bld)3.0 E9/LNormal1.0-4.0[facility] HospitalComment on above:Order Comment: Order Added by Discern Expert.Performed By: #### 9554940, 8767870, 5684321, 31888800 ####[address] [address]Kfcqpbogr/100 WBC Auto (Bld)5.7 %Normal4.0-14.0[facility] HospitalComment on above:Order Comment: Order Added by Discern Expert. Performed By: #### 7577787, 9946775, 3530958, 85707138 ####[address] [address]Shjmessim/Leukocytes Auto Pure number fraction (Bld)0.6 E9/LNormal0.2-1.0[facility] HospitalComment on above:Order Comment: Order Added by Discern Expert.Performed By: #### 0970850, 8343496, 1465774, 63567520 ####[address] [address]Ucktovnvfpc/100 WBC Auto (Bld)62.8 %Bpveuf79.0-75.0 [facility] HospitalComment on above:Order Comment: Order Added by Discern Expert.Performed By: #### 4599348, 1934946, 6441637, 75494249 ####[facility] [address] [address] Neutrophils/Leukocytes Auto Pure number fraction (Bld)6.3 E9/LNormal2.0-7.5 [facility] HospitalComment on above:Order Comment: Order Added by Discern Expert.Performed By: #### 1044181, 6841329, 1280037, 60649503 ####[address] [address]WVY w/ Auto Diffon 75-32-5392Ebrdcqfppir distribution width Auto Ratio (RBC)13.6 %Normal 10.9-14.2FOur Lady of Mercy HospitalComment on above:Performed By: #### 1326162, 0464799, 1985391, 87960048 ####[address] [address]Nwdhkbziwz Auto Volume Fraction (Bld)48.7 %Normal 37.7-49.0[facility] HospitalComment on above:Performed By: #### 2267301, 1487207, 6446388, 89298432 ####[address] [address]Dvtvidgljh mass conc (Bld)16.7 g/oZIxzxkz02.5-17.5 [facility] HospitalComment on above:Performed By: #### 8068116, 3389011, 5097035, 96060696 ####[place] [address]MCH Auto Entitic mass (RBC)30.6 dxSfoofu51.0-34.0[facility] HospitalComment on above:Performed By: #### 5882748, 8650466, 2228480, 45379720 ####[place] [address]MCHC Auto mass conc (RBC)34.3 g/gHUsoika61.4-39.3FOur Lady of Mercy HospitalComment on above:Performed By: #### 0197680, 3334255, 8872637, 71939420 ####[place] [address] [address]COU Auto Entitic volume (RBC)89.3 iDWzsmfq89.0-100.0[facility] HospitalComment on above:Performed By: #### 6438770, 6882944, 3879678, 96662012 ####[address] [address]Zjorrlgd mean volume Auto Entitic volume (Bld)7.6 fLNormal 6.4-10.8[facility] HospitalComment on above:Performed By: #### 2880175, 4314970, 5890420, 06046406 ####[address] [address]Zptrwmxcj Auto #/vol (Bld)361.0 E9/LNormal 150.0-500.0[facility] HospitalComment on above:Performed By: #### 5282988, 3578215, 7386780, 39034083 ####[address] [address]ODS Auto #/vol (Bld)5.4 E12/LNormal 4.3-5.9[facility] HospitalComment on above:Performed By: #### 6505238, 7954735, 6264974, 71576803 ####[address] [address]MRV corrected for nucl RBC Auto #/vol (Bld)10.1 E9/LNormal4.0-11.0[facility] HospitalComment on above:Performed By: #### 1165343, 6683554, 5301781, 78626449 ####[address] [address]PNOew 27-71-0977Qvtpgza mass conc1.3 g/dLNormal1.1-2.2FOur Lady of Mercy HospitalComment on above:Performed By: #### 7021772, 5576230, 3389749, 66451851 ####[address] [address]Zvyexaz mass conc4.5 g/dLNormal 3.3-5.0[facility] HospitalComment on above:Performed By: #### 2625808, 5957254, 2856977, 51942071 ####[facility] [address] [place], [place] [address]ABA enzyme act/vol91 Int._Unit/JYuqeoj39-32AyhfbgCleveland Clinic Hillcrest HospitalComment on above:Performed By: #### 7601164, 6159060, 2410158, 90509148 ####[address] [address]NCM No additional P-5'-P enzyme act/vol33 Int._Unit/LNormal 6-46[facility] HospitalComment on above:Performed By: #### 8347812, 9282546, 6520360, 18789822 ####[address] [address]FXQ enzyme act/vol26 Int._Unit/LNormal5-43[facility] HospitalComment on above:Performed By: #### 9632101, 8726179, 9715419, 73939838 ####[address] [place], [place] [address]Euwveeetw mass conc0.5 mg/dLNormal0.0-1.1FOur Lady of Mercy HospitalComment on above:Performed By: #### 4076380, 3687012, 2042293, 44303580 ####[address] [place], [place] [address]Qubzdqeuhs mass conc0.9 mg/dLNormal0.5-1.3FOur Lady of Mercy Hospital Comment on above:Performed By: #### 8508966, 3974800, 9451818, 71233045 ####[facility] [address] [place] [address] Globulin Calculated mass conc (S)3.4 g/dLNormal1.4-4.0[facility] HospitalComment on above:Performed By: #### 3745890, 0574507, 5399493, 35263717 ####[facility] [address] [place] [address] Protein mass conc7.9 g/dLHigh6.0-7.8[facility] HospitalComment on above: Performed By: #### 8042346, 7633597, 1225487, 56557359 ####[address] [place], [place] [address]Hgem nitrogen mass conc11 mg/dLNormal5-21[facility] HospitalComment on above:Performed By: #### 1726550, 2424370, 8221204, 49979488 ####[address] [address]Ovze nitrogen/Creatinine mass ratio12 No LktwoDbflyb45-90CdrexqCleveland Clinic Hillcrest HospitalComment on above:Performed By: #### 9984776, 5912880, 5620408, 51042633 ####[address] [address]Sofaa gap 3 molar conc17 mmol/LHigh 6-16[facility] HospitalComment on above:Performed By: #### 1583251, 8383869, 0111031, 20072036 ####[address] [address]Tawhbxm mass conc9.3 mg/dLNormal8.9-11.1FOur Lady of Mercy HospitalComment on above:Performed By: #### 4385481, 9331634, 4100240, 40273343 ####[address] [place], [place] [address]Cwhdxrqw molar conc99 mmol/TMcs751-876ZwhbgmCleveland Clinic Hillcrest HospitalComment on above:Performed By: #### 0030913, 0443629, 0862878, 41933045 ####[address] [place], [place] [address]IE7 molar conc22 mmol/UKtzklp31-01WgydveCleveland Clinic Hillcrest HospitalComment on above: Performed By: #### 4742161, 6658861, 8871934, 32931519 ####[facility] [address] [place], [place] [address]Jljqqzc mass kcod586 mg/dL Hrzwco11-493NjqtnoCleveland Clinic Hillcrest HospitalComment on above:Result Comment: If this glucose result represents a fasting glucose, interpretation should refer tothe following reference range: 55-99 mg/dLPerformed By: #### 6437867, 3826813, 3261241, 16846793 ####[facility] [address] [place], [place] [address]Mjkbxurae molar conc3.6 mmol/LNormal3.5-5.3Fisher [facility] Orthopaedic InstituteComment on above:Performed By: #### 0872639, 8529717, 8161596, 60533337 ####[address] [place], [place] [address]Metmiq molar ecee070 mmol/RUmi316-400HnvzaoCleveland Clinic Hillcrest HospitalComment on above:Performed By: #### 6695667, 8511483, 0795806, 04627485 ####[address] [address]KN Clinical Summaryon 57-61-6438VJ Clinical Summary [address] [address] ED Clinical SummaryPerson Information Name: TREATYUVAL/[facility]_[place] Age: 42 Years : 1975 12:00 AM Sex: Male Language:Croatian PCP: LYNETTE CROCKETT MD Marital Status:Unknown Visit [...] Request 01/30/2018 12:38 AM Registration Request 01/30/2018 12:49AM Pending Labs Complete 01/30/2018 12:54 AM 01/30/2018 12:54 AM 01/30/2018 1:11 AM Lab Complete 01/30/2018 12:54 AM 01/30/2018 12:54 AM 01/30/2018 1:11 AM Pending Labs Request 01/30/2018 12:55 AM Lab Request 01/30/2018 12:55 AM Urine Collect Request 01/30/2018 12:55 AM Pending Labs Complete 01/30/2018 12:57AM 01/30/2018 12:57 AM 01/30/2018 12:57 AM Lab [...] AM 01/30/2018 9:31 AM 01/30/2018 9:31 AM ADDRESS:[address] [place] [id number] PHYS DOC NOTES: MEDICAL INFORMATION: Prescriptions Given:PATIENT EDUCATION INFORMATION: Instructions: Follow up:DIAGNOSIS:1:Suicidal ideations; 2:Depressed moodNormal [facility] CenterED Note-Nursingon 91-71-9777ND Note-Nursingreport recieved from Chasity Mehta RN, pt resting at this time with eyes closed within view of nurses station, respirations even and unlabored no signs of distress ddubr0134-kg continues to rest in room within view of nurses station , respirations even and unlabored, no signs of ugnyvjea5676- pt continues to rest in room within view of nurses station, 0554- condition unchanged, resting with eyes closed, no s/sx of ouicbuos6301-wgpnddk resting in bed respirations even and unlabored, no signs of qjscxxaa1561- pt continues to rest with eyes closed, respirations even and unlabored, pt remains in view of nurses station,0639- pt continues to rest with eyes closed, no signs of distressbreakfast tray ordered for xb6672- pt continues to rest left undisturbed, no signs of distressNormal [facility] CenterED Note-NursingPt is resting quietly in bed. Denies suicidal ideations but has [...] will. I attempted to inform pt that unfortunatelybecause of comments that were made we are [...] give. Pt has changed his mind. No medicationsadministered at this time per pt declines. Gave him home contact case and solution.Pt is resting joann etly in bed with eyes closed, no signs of distress noted. RN can visualize pt. ETA of depart time is 830am.[facility] CenterED Note-Physicianon 27-84-6129SO Note-PhysicianBasic Information Time Seen: Chaya Chao DO 01/30/2018 00:49Chief Complaint Pt arrives in [employer] custody after 'arguement with gf' sts he 'said something about harming himself this evening.' Pt presently denies homicidal/SI tendencies. Denies depression, anxiety. Drank 5 beers, denies drug use.History of Present Illness 42M presents to the ER with general issues and concern for depression and suicidal ideations/threats. Discussion with the girlfriend, the patient has had increased depression overthe past few months. He is having multiple stressors at home. He has issues with his ex-. He also has concerns with his 3 children that he has with ex-. He is starting a new job tomorrow. He has made multiple suicidal threats in the past. He did tell his current girlfriend couple months agothat he was at home with a shotgun in his mouth ready to go. She states they do have a shotgun at home. Tonight he had issues with his son at the football game. His girlfriend and him went to the concert afterwards. After the concert, patient was crying and stating that he hated everything. At thistime he proceeded to contact his family members [...] complaints related to the presenting medical problem. Ph ysical Exam Vitals & Measurements HR: 120(Peripheral) RR: [...] clear in his messages that his intent angie was to commit suicide. At this time we will medically clear the patient to have him evaluated bya mental health professional. Patient will be pink slipped. medically cleared for psych eval. evaluated by P patient becoming more aggressive with violent outbursts towards staff - 1mg ativan and 2mg Haldol ordered. Patient has been accepted at [address], accepting physician Dr Perez. Transport to [...] = 0.5 mL, Injection, IV Push, Once, Stopdate 01/30/18 3:00:00 EDT, Routine, Start date 01/30/18 3:00:00 EDT Acetaminophen Level Automated Diff CBC w/ Auto Diff Communication Order Comprehensive Metabolic Panel Consult to Mental Health Drug Screen Urine eGFR Ethanol Level Salicylate Level UA With Cult ReflexDisposition Plan Patient Discharge Condition stable Discharge Disposition TRANSFER FOR INPATIENT PSYCH TO [address], ACCEPTING PHYSICIAN DR PEREZ. Discharge Prescription List Prescriptions No active prescription medicationsFollow-up No qualifying data availableProblem List/Past Medical History Ongoing Smoker Historical No qualifying dataMedications Inpatient Ativan 2 mg/mL Injection, 1 mg= 0.5 mL, IV Push, Once haloperidol 5 mg/mL Inj, 2 mg= 0.4 mL, IntraMuscular, Once Home No active home medicationsAllergies No Known AllergiesLab Results WBC: 10.1 E9/L (01/30/18 00:50:00 EDT) RBC: 5.4 E12/L (01/30/18 00:50:00 EDT)Hgb: 16.7 gm/dL (01/30/18 00:50:00 EDT) Hct: 48.7 % (01/30/18 00:50:00 EDT) MCV: 89.3 fL (01/30/18 00:50:00 EDT) MCH: 30.6 pg (01/30/18 00:50:00 EDT) MCHC: 34.3 gm/dL (01/30/18 00:50:00 EDT) RDW: 13.6 % (01/30/18 00:50:00 EDT) Platelet: 361 E9/L (01/30/18 00:50:00 EDT) MPV: 7.6 fL (01/30/18 00:50:00 EDT) Neutro Auto: 62.8 % (01/30/18 00:50:00 EDT) Lymph Auto: 30.2 % (01/30/18 00:50:00 EDT) Rhea Auto: 5.7 % (01/30/18 00:50:00 EDT) Eos Auto: 0.6 % (01/30/18 00:50:00 EDT) Basophil Auto: 0.7 % (01/30/18 00:50:00 EDT) Neutro Absolute: 6.3 E9/L (01/30/18 00:50:00 EDT) Lymph Absolute: 3 E9/L (01/30/18 00:50:00 EDT) Rhea Absolute: 0.6 E9/L (01/30/18 00:50:00 EDT) Eos Absolute: 0.1 E9/L (01/30/18 00:50:00 EDT) Basophil Absolute: 0.1 E9/L (01/30/18 00:50:00 EDT) Glucose Lvl: 128 mg/dL (01/30/18 00:50:00 EDT) BUN: 11 mg/dL (01/30/18 00:50:00 EDT) Creatinine: 0.9 mg/dL (01/30/18 00:50:00 EDT) eGFR:>60 (01/30/18 00:50:00 EDT) eGFR AA: >60 (01/30/18 [...] (01/30/18 00:50:00 EDT)Diagnostic Results No qualifying data available.[facility] CenterComment on above:Result Comment: Electronically Signed By: Chaya Chao DO\.br\Date and Time Signed: 01/30/18 03:37 EDTED Patient Education Note on 50-06-8622RE Patient Education NoteNonicholasMagruder Memorial Hospital CenterED Patient Summaryon [id number] Patient Summary [place] [id number] Patient Discharge Instructions Person Information Name: YUVAL MUSA Age: 42 Years Date: 01/30/2018 12:29 AMDischarge Diagnosis: 1:Suicidal ideations; 2:Depressed mood Primary Care Physician: LYNETTE CROCKETT MD Provider InformationPrimary Provider: Eugenia Chao DO Hot Walker:None The exam and treatment you received in the Emergency Department were for an urgent problem and are not intended as complete care. It is important that you follow up with a doctor, nurse practitioner, or physician?s reference library assistant for ongoing care. If your symptoms [...] your insurance company to find a nearby participatingprovider. Patient Education Materials: A MESSAGE TO ALL PATIENTS REGARDING OPIOIDS PRESCRIPTION OPIOIDS: WHAT YOU NEED TO KNOW Prescription opioids can be used to help relieve ikncrvmo-sm-mgljdm painand are often prescribed following a surgery or injury, or for certain health conditions. These medications can be an important part of the treatment but also come with serious risks. It is importantto work with your healthcare provider to make sure you are getting the safest, most effective care.WHAT ARE THE RISKS AND SIDE EFFECTS OF OPIOID USE?Prescription opioids carry serious risks of addiction and overdose, especially with prolonged use. An opioid overdose, often marked by slowed breathing, can cause sudden . The use of prescription opioids can have a number of side effects as well, even when taken as directed:? Tolerance?meaning you might need to take more of the medication forthe same pain relief? Physical dependence?meaning you have symptoms of withdrawal when a medicationis stopped? Increased sensitivity to pain ? Constipation? [...] older)? Avoid alcohol while taking prescription opioids. Also,unless specifically advised by your health care provider, medications to avoid include:? Benzodiazepines (such as Xanax or Valium)? Muscle relaxants (such as Soma or Flexeril)? Hypnotics (such as Ambien or Lunesta)? Other prescription opioids KNOW YOUR OPTIONSTalk to your health care provider aboutways to manage your pain that don?t involve prescription opioids. Some of these options may actually work better and have fewer risks and side effects. Options may include:? Pain relievers such as robert taminophen, ibuprofen, and naproxen? Some medication that are also used for depression or seizures?Physical therapy and exercise? Cognitive behavioral therapy, a [...] help manage your pain that don?t involve prescriptionopioids.o Talk about any and all concerns and side effects.? Help prevent misuse and abuseo Never sell or share prescription opioids.o Never use another person?s prescription opioids.? Store prescription opioids in a secure place and out of reach of others (this may include visitors, children, friends, and family).? Safely dispose of unused prescription opioids: Find your community drug take-backprogram or your pharmacy mail-back program, or flush them down the toilet, following guidance from the Food and Drug Administration (www.fda.gov/Drugs/ResourcesForYou).? Visit www.cdc.gov/drugoverdose to learn about the risks of opioids abuse and overdose.? If you believe you may be struggling withaddiction, tell your health nurse wound care and ask for guidance or call SAMHSA?S National Helpline at 6-018-274-HELP. v Source: [place] Department of Health and Human Services/Center for Disease Control & Prevention [facility] Medications Given:Medication Dose Route No medications found. Medication Information:Comment: [facility] Information: [facility] GUANACO Mari BRIAN S , have received the following patient education materials/instructions and have verbalized understanding: Patient E ducation Materials: Follow-up Instructions: Prescriptions: Patient Signature Date Clinician/Nurse Signature Date 01/30/18 09:31:29NormalC[facility] Clinic Hillcrest HospitalEthanolon 88-19-9617Coingks mass mfhe789 mg/dLAbnormal<=7FOur [facility] of [facility] Comment on above:Result Comment: Critical Result S_ETOH:154.0 Called to ROBERTO CANALES AT by SONDRA MEEK And Read Back For Confirmation at: 01/30/2018 01:22:23\Critical Result verified by repeat analysisPerformed By: #### [id number] ####[facility] [address] [place] [address] Progress Note-Nurseon 92-94-4766Hpzxnsm mass concPatient remains cooperative. Denies any needs or complaints at this time. [employer] Repairer updated girlfriendAngela Limberios with current plan of care after patient consent.[facility] CenterProtein mass concPatient consumed 75% of meal. Up ambulated to bathroom with slow steady gait. Patient denies any further needs. Cooperative at this time.[facility] CenterProtein mass concCare of patient taken over per tag writer. Meal tray given. Patient denies complaints or needs. Cooperative at this time.Centervillealicylateon 94-17-1704Edbmmuyrkds mass concmg/dLLow6-[facility] HospitalComment on above:Performed By: #### [id number], [id number] ####[facility] [address] [place], [place] [address]Y Drug Screenon 01-30-2018 Amphetamines Screen method >1000 ng/mL Ql (U)NegativeNormalNegativeCleveland Clinic Hillcrest HospitalComment on above:Result Comment: Negative Cutoff: <1000 ng/mL Performed By: #### [id number] ####[address] [address]Dsuqwxpgpcov Screen Ql (U)NegativeNormalNegative [facility] HospitalComment on above:Result Comment: Negative Cutoff: <200 ng/mLPerformed By: #### [id number] ####[address] [address]Rqlgfzvwhwruqdk Screen Ql (U)Negative NormalNegativeCleveland Clinic Hillcrest HospitalComment on above:Result Comment: Negative Cutoff: <200 ng/mLPerformed By: #### [id number] ####[facility] [address] [place], [place] [address]Wnebdxd Ql (U)NegativeNormal [facility] CenterComment on above:Result Comment: Negative Cutoff: <300 ng/mLPerformed By: #### [id number] ####[facility] [address] [place], [place] [address]Clgxlui Screen Ql (U)NegativeNormal [facility] Medical CenterComment on above:Result Comment: Negative Cutoff: <300 ng/mLPerformed By: #### [id number] ####[facility] [address] [place], [place] [address]Ljtwgviegvfnz Screen method >25 ng/mL Ql (U)NegativeNormalNegativeC[facility] Clinic Hillcrest HospitalComment on above:Result Comment: Negative Cutoff: <25 ng/mLThese drug screen results are to be used for medical (i.e., treatment) purposes only. Unconfirmed drug screening results must not be used for non-medical purposes (e.g., employment testing, legal testing). Performed By: #### [id number] ####[address] [place], [place] [address]Ynhhiapflfgymwezponk Screen method >50 ng/mL Ql (U) NegativeNormalNegativeCleveland Clinic Hillcrest HospitalComment on above:Result Comment: Negative Cutoff: <50 ng/mLPerformed By: #### [id number] ####[address] [place], [place] [address]lYKAww 01-30-2018 GFR/1.73 sq M predicted among blacks MDRD vol rate/area (S/P/Bld) mL/min/{1.73_m2}Normal>=59[facility] HospitalComment on above:Order Comment: Order added by Discern Expert.Result Comment: eGFR is race adjusted. AA=.Performed By: #### [id number], [id number], [id number], [id number] ####[address] [place] [address] GFR/1.73 sq M predicted among non-blacks MDRD vol rate/area (S/P/Bld) mL/min/{1.73_m2}Normal>=59[facility] HospitalComment on above:Order Comment: Order added by Discern Expert.Result Comment: Chronic kidney disease could be indicated at eGFR's of less than 60 mL/min/1.73m2. Kidney failure is indicated at less than 15 mL/min/1.73m2.Performed By: #### [id number], [id number], [id number], [id number] ####[address] [facility] [place] [address] Encounters Encounter DateEncounter TypeCare ProviderFacilityStart: 04-26-2023 End: 03-73-0037myvtwmvgbiKVHE NADERERNot AvailableStart: 03-03-2023 End: 00-10-8367bgmtfhzelaCHJWG MUSTAPHAUniversMercer County Community Hospitaltart: 12-02-2022 End: 38-84-3561cymidradasUFWFB MUSTAPHAUniversity [facility] Hospitaltart: 10-20-2022 End: 44-01-8719klwkrjgqglMVXGM MUSTAPHAUniversity [facility] Hospitaltart: 09-24-2022 End: 43-17-8140wmmvxfakodAGRLH MUSTAPHAUniversity [facility] Hospitaltart: 09-13-2022 End: 03-27-1019xwjlpciaqiCUIMF MUSTAPHAUniversMercer County Community Hospitaltart: 09-13-2022 End: 78-02-8207Xipihdsit for preprocedural laboratory examinationSelect Medical Specialty Hospital - Cincinnatitart: 09-13-2022 End: 25-27-4773kzragyyepmSPKXT MUSTAPHAUniMarietta Memorial Hospitaltart: 09-09-2022 End: 42-12-3767ojdpycikkhLXVIX MUSTAPHAUniversMercer County Community Hospitaltart: 09-07-2022 End: 28-17-7088wpqdxknuxdXY LYNETTE A NADERERFacility:T3Oumox: 01-30-2018 End: 56-13-0126Hiblifbrq department patient visitTania QadirFacility:[facility] Payers DatePayer CategoryPayerPolicy [id number] [id number] Health [id number] State [id number] Progress note 12-02-2022 Note Date & RnxgFiicGbemqblp60-71-0014 Note Attestation signed by Mouna Fuentes MD at 12/06/2022 2:49 PM As the teaching physician, I have personally performed or re-performed the history of present illness, physical exam and medical decision making activities of the encounter and verified the medical student's documentation. I made pertinent changes as necessary to ensure accurate documentation. Orthopedic Surgery Subjective Follow-up and Pain of the Right Hand ([facility] Injury) 12/02/22 Yuval Musa is a 47 [...] Matthew Angel, MS-3 Medical Student 12/02/22 10:13 [facility] Progress note 10-20-2022 Note Date & KddiGzvoPxuctemk53-15-6006 NoteOrthopedic Surgery Subjective Pain of the Right Little [...] address motion and strengthening of the upper extremity.[facility] Progress note 09-24-2022 Note Date & BlyqNryrFvlngbit08-88-5361 Note Attestation signed by Mouna Fuentes MD at 10/05/2022 10:09 AM I personally saw and examined the patient on the same date of service as resident/fellow . I discussed the findings and therapeutic plan with the resident/fellow . I agree with the documentation, except for any edits/updates below. Teaching Physician's Revisions: Orthopedic Surgery 09/13/2022 Closed Reduction , Percutaneous [...] protection Jason Diaz MD Orthopedic Surgery, PGY-[address] [facility] Pager: [phone] 09/24/22 8:24 [facility] Clinical Note 09-13-2022 Note Date & YqmlWvobWcbqlcfz37-63-9491 NotePatient: Yuval Muas Procedure Summary Date: 09/13/22 Room / Location: [facility] OR [address] [place] [address] OR Anesthesia Start: 1339 Anesthesia Stop: 1418 [...] PACU per anesthesia protocol. No notable events documented.[facility] Clinical Note 09-13-2022 Note Date & QzwoRqhtUlbmtajj29-75-6950 NotePatient: Yuval Musa Procedure Information Date/Time: 09/13/22 1400 Procedure: PINNING, FRACTURE, PERCUTANEOUS SMALL FINGER (Right: Little Finger) - C-arm Location: [facility] OR [address] [place] [address] OR Surgeons: Mouna Fuentes MD Relevant Problems [...] patient. Plan discussed with CAA. Additional [facility]sUnMer[facility] Hospital Progress note 09-09-2022 Note Date & UdddZqtkDtwtrhxn59-96-7551 Note Attestation signed by Mouna Fuentes MD [...] work two days ago. [facility]. He was [...] fracture with intra-articular involvement [facility] and sent to our clinic for further [...] weeks. Matthew Gill MD PGY-3 Orthopedic Surgery [facility] By using the attestations below, the [...] may be an additional personal documentation from me.[facility] Clinical Note 09-07-2022 Note Date & PaqdTebkMgzhgzjd53-04-2335 NotePROCEDURE: XR FINGER MIN 2 VIEWS HISTORY: Crushing [...] Electronically authenticated by: DIONTE GONZALEZ Date: 2022-09-07 15:01[facility] Clinical Note 09-07-2022 Note Date & PrnlDwfuEtmwnxfa12-05-7245 NotePROCEDURE: XR HAND RT MIN 3V COMPARISON: None. HISTORY: Crushing injury [...] Electronically authenticated by: MARVA GUNDERSON Date: 2022-09-07 13:09[facility] Summary Purpose Family History No Family History [...] section and content) DATE CREATED AUTHOR 02/16/2018 [facility] DATE CREATED AUTHOR AUTHOR'S ORGANIZ ATION 09/09/2022 [facility] DATE CREATED AUTHOR AUTHOR'S ORGANIZ ATION 03/04/2023 [facility] DATE CREATED AUTHOR AUTHOR'S ORGANIZ ATION 04/28/2023 [facility] EPIC FOR RECORDS PERTAINING TO PATIENTS WHO ARE [...] BE BASED ON THE PRIMARY CLINICAL RECORDS. [facility] [employer] provides no warranty or guarantee of the accuracy or completeness of information in this document.
[2025-04-10 14:59] LABS: Hematocrit 47.3 % (42.0-54.0); Hemoglobin 16.1 g/dL (14.0-18.0); Immature Granulocytes Abs Auto 0.09 10^3/uL (0.00-0.03); Immature Granulocytes Pct Auto 1.2 % (0.0-0.5); Lymphocytes Absolute Auto 2.2 10^3/uL (1.2-3.8); Mean Corpuscular HGB Conc 34.0 g/dL (29.9-35.2); Mean Corpuscular Hemoglobin 32.2 pg (25.9-34.0); Mean Corpuscular Volume 94.6 fL (80.0-94.0); Platelet Count 270 10^3/uL (150-450); Red Blood Count 5.00 10^6/uL (4.70-6.10); White Blood Count 7.3 10^3/uL (4.0-11.0)
[2025-04-10 15:59] LABS: Alanine Aminotransferase 49 U/L (16-63); Albumin Globulin Ratio 1.2; Albumin Level 3.8 g/dL (3.4-5.0); Alkaline Phosphatase 114 U/L (46-116); Anion Gap 8.9; Aspartate Amino Transferase 21 U/L (15-37); Blood Urea Nitrogen 15.0 mg/dL (7.0-18.0); Calcium 9.0 mg/dL (8.5-10.1); Carbon Dioxide 29.3 mmol/L (21.0-32.0); Chloride 104 mmol/L (98-107); Cholesterol 210 mg/dL (<=200); Estimated GFR (African America >60 (>=60 mL/min/1.73m^2); Estimated GFR (Non-African Ame >60 (>=60 mL/min/1.73m^2); Globulin 3.3 g/dL; Glucose 100 mg/dL (74-106); HDL Cholesterol 61 mg/dL (40-60); Potassium 4.2 mmol/L (3.5-5.1); Sodium 138 mmol/L (136-145); Thyroid Stimulating Hormone 4.418 uIU/mL (0.358-3.740); Total Protein 7.1 g/dL (6.4-8.2); Triglycerides 54 mg/dL (<=150); VLDL CHOLESTEROL 10.8 mg/dL
== END 2025-04-10 14:37 | disposition home or self-care (01) ==
LOC: LAB 14:37
PROVIDERS: PCP Family Medicine; Visit Provider Family Medicine
DX: Z00.00 Encounter for general adult medical examination without abnormal findings (principal); Z12.5 Encounter for screening for malignant neoplasm of prostate
CPT/HCPCS: 36415; 80053; 80061; 83036; 84403; 84443; 85025; G0103